=== PATIENT | male | born 1960 | race Caucasian/White ===

== ENCOUNTER 2022-03-30 06:57 | Inpatient (IN) ==
[2022-03-30] MEDS ORDERED: IOPAMIDOL 100 ML BOTTLE IV ONE (06:58)
[2022-03-30 07:10] LABS: POC Calcium, Ionized 1.18 (1.16-1.32); POC Creatinine 0.9 (0.6-1.2); POC Potassium 3.8 (3.3-5.1)
--- NOTE | 2022-03-30 07:13 | Emergency Department Note ---
HPI General Chief complaint: Stroke Symptoms Stated complaint: DIZZY, NUMBNESS, SLUR SPEACH Time Seen by Provider: 03/30/22 07:06 Source: patient and family Mode of arrival: ambulatory Limitations: no limitations History of Present Illness HPI Narrative: Narrative: This 61-year-old male states that he awoke approximately 4:00 am and felt "wobbly". He states he occasionally does feel this way so he did not think much about it. He went and sat in his easy chair after being in the bathroom and noticed slurred speech and facial drooping. He states this is approximately 5 AM. Patient states his neck was manipulated by a chiropractor yesterday. Patient's only medical history is hypertension chronic back pain and nicotine dependence. He denies any cancer diagnosis, any recent surgeries, and no head trauma within the last 3 months, (he did fall off a ladder in November), hes not on any antithrombotics or anticoagulants, and he has no known bleeding disorder. Related Data Home Medications Medication Instructions Recorded Confirmed beta-sitosterol 125 mg-vit D3 10 tab PO 03/21/21 03/22/22 hbw-xpyadccr-mwwlllxoy 250 mg tablet (Prostate Max Plus) cholecalciferol (vitamin D3) 50 50 mcg PO QDAY 03/21/21 03/22/22 mcg (2,000 unit) capsule fzvnamdi-xqkjabqk-gdo C 250 tab PO QDAY 03/27/21 03/22/22 mg-herbal no.124 11.66 mg chewable tablet (Airborne Gummy) multivitamin 1 tab PO QDAY 03/27/21 03/22/22 Previous Rx's Medication Instructions Recorded meclizine 12.5 mg tablet 12.5 mg PO TID PRN dizziness #20 01/30/22 tabs lisinopril 10 mg tablet 10 mg PO QDAY #90 tabs 03/22/22 Allergies Allergy/AdvReac Type Severity Reaction Status Date / Time No Known Drug Allergies Allergy Verified 03/22/22 15:21 Review of Systems ROS ROS Narrative: Narrative: All systems ED: reviewed and negative except as stated. COUNTS INCLUDE 234 BEDS AT THE [facility] Narrative Patient History Narrative: Narrative: Medical/Surgical/Family History All Active Problems (Updated 03/30/22 @ 09:18 by Nagi Bal MD) Acute CVA (cerebrovascular accident) (Acute) Acute exacerbation of chronic low back pain (Acute) Near syncope (Acute) Nicotine dependence (Chronic) Lumbar back pain (Chronic) Osteopenia (Chronic) Degenerative disc disease (Chronic) Osteoporosis (Chronic) High blood pressure (Chronic) Essential hypertension (Chronic) Obesity (Chronic) Family history of diabetes mellitus (Chronic) Medical History Degenerative disc disease Essential hypertension Family history of diabetes mellitus High blood pressure Lumbar back pain Nicotine dependence Obesity Osteopenia Osteoporosis Surgical History No pertinent past surgical history Family History Father Cancer Mother Diabetes mellitus Hypertension Grandfather Prostate cancer Social History Smoking Status: Never smoker and Smokeless tobacco Alcohol Intake Frequency: a few times a week Substance Use: does not use Exam Narrative Narrative: Narrative: General: Alert oriented x3 answers questions cogently. Has only a minor speech impediment at this time, disappearing quickly. Neuro: GCS equals 15. NIH stroke scale =2. Lungs: Clear to auscultation equal bilaterally without rales rhonchi or wheezes. CV: Regular rate and rhythm without murmurs clicks rubs or gallops. Neck: No carotid bruits appreciated. General Limitations: no limitations Course Vital Signs Vital signs: Vital Signs Temperature 97.8 F 03/30/22 06:58 Pulse Rate 82 03/30/22 06:58 Respiratory Rate 16 03/30/22 06:58 Blood Pressure 186/94 03/30/22 06:58 Pulse Oximetry (%) 100 03/30/22 06:58 Oxygen Delivery Method Room Air 03/30/22 06:58 Temperature 97.8 F 03/30/22 06:58 Pulse Rate 68 03/30/22 09:02 Respiratory Rate 16 03/30/22 09:02 Blood Pressure 146/84 03/30/22 07:40 Pulse Oximetry (%) 98 03/30/22 09:02 Oxygen Delivery Method Room Air 03/30/22 06:58 MDM MDM Narrative Medical decision making narrative: Narrative: EKG shows a normal sinus rhythm with no acute ischemic changes and no arrhythmias. CT without contrast was read by the neurologist as having no signs of an acute bleed or mass-effect, with whichthe radiologist agreed. CT angios of the head and neck were ordered and showed. The neurologist pointed out that the last known time of full health was when he went to bed (830), however he does state that he got additional symptoms besides his ataxia (which he has had before) at a proximately 5 AM. CTA of head and neck showed Mild plaque in the proximal left internal carotid artery. No stenosis or evidence for ulceration. 2. Otherwise negative CTA of the upper chest, neck, brain. No sign of dissection of carotid following neck manipulation. Discussed with Dr. Bal neurologist to reviewed the CTs and felt the patient was having a ischemic stroke and should be followed on aspirin Plavix and admitted for the rest of the CVA work-up. Sepsis Sepsis Identified: No Lab Data 03/30/22 07:03 Labs: Lab Results 03/30/22 03/30/22 03/30/22 Range/Units 07:03 07:03 07:07 WBC 7.7 (4.5-11.0) K/mcL RBC 5.58 (4.63-6.08) M/mcL Hgb 16.0 (13.7-17.5) g/dL Hct 49.3 (40.1-51.0) % POC Hct 51.0 (41-55) MCV 88.4 (80.0-100.0) fL MCH 28.7 (26.0-34.0) pg MCHC 32.5 (31.0-36.0) g/dL RDW 14.8 H (11.5-14.5) % Plt Count 228 (140-440) K/mcL MPV 10.4 (8.8-12.5) fL Immature Gran % (Auto) 0.5 (0.0-0.5) % Neut % (Auto) 66.4 (38.0-78.0) % Lymph % (Auto) 23.1 (15.5-49.0) % [place] % (Auto) 8.2 (1.0-12.0) % Eos % (Auto) 1.3 (0.0-7.0) % Baso % (Auto) 0.5 (0.0-2.0) % Lymph # (Auto) 1.77 (1.50-4.80) K/mcL [place] # (Auto) 0.63 (0.10-0.90) K/mcL Eos # (Auto) 0.10 (0.00-0.70) K/mcL Baso # (Auto) 0.04 (0.00-0.30) K/mcL Immature Gran # 0.04 (0.00-0.05) K/mcl Absolute Neutrophils 5.08 (1.80-8.00) K/mcL POC PT (11.9-14.5) POC INR (0.8-1.2) APTT 29.5 (20.0-37.0) sec POC Sodium 138 (133-145) POC Potassium 3.8 (3.3-5.1) POC Chloride 100 (96-108) POC Total CO2 29.0 (22-30) POC BUN 13 (6-20) POC Creatinine 0.9 (0.6-1.2) POC Glucose 153 H (70-105) POC WB Ioniz Calcium 1.18 (1.16-1.32) Total Bilirubin (0.1-1.0) mg/dL Direct Bilirubin (0-0.3) mg/dL AST (<40) U/L ALT (<40) U/L Alkaline Phosphatase (39-117) U/L Total Protein (5.9-8.4) gm/dL Albumin (3.2-5.2) gm/dL Globulin (2.2-3.7) gm/dL Urine Color Urine Appearance (Clear) Urine pH (5.0-9.0) Ur Specific [place] (1.000-1.035) Urine Protein (Negative) mg/dL Urine Glucose (UA) (Negative) mg/dL Urine Ketones (Negative) mg/dL Urine Occult Blood (Negative) nancy/mcL Urine Nitrate (Negative) Urine Bilirubin (Negative) mg/dL Urine Urobilinogen mg/dL Ur Leukocyte Esterase (Negative) /uL Ur Culture Indicated? POC Troponin I (0.00-0.08) 03/30/22 03/30/22 03/30/22 Range/Units 07:08 07:31 07:32 WBC (4.5-11.0) K/mcL RBC (4.63-6.08) M/mcL Hgb (13.7-17.5) g/dL Hct (40.1-51.0) % POC Hct (41-55) MCV (80.0-100.0) fL MCH (26.0-34.0) pg MCHC (31.0-36.0) g/dL RDW (11.5-14.5) % Plt Count (140-440) K/mcL MPV (8.8-12.5) fL Immature Gran % (Auto) (0.0-0.5) % Neut % (Auto) (38.0-78.0) % Lymph % (Auto) (15.5-49.0) % [place] % (Auto) (1.0-12.0) % Eos % (Auto) (0.0-7.0) % Baso % (Auto) (0.0-2.0) % Lymph # (Auto) (1.50-4.80) K/mcL [place] # (Auto) (0.10-0.90) K/mcL Eos # (Auto) (0.00-0.70) K/mcL Baso # (Auto) (0.00-0.30) K/mcL Immature Gran # (0.00-0.05) K/mcl Absolute Neutrophils (1.80-8.00) K/mcL POC PT 13.4 (11.9-14.5) POC INR 1.1 (0.8-1.2) APTT (20.0-37.0) sec POC Sodium (133-145) POC Potassium (3.3-5.1) POC Chloride (96-108) POC Total CO2 (22-30) POC BUN (6-20) POC Creatinine (0.6-1.2) POC Glucose (70-105) POC WB Ioniz Calcium (1.16-1.32) Total Bilirubin 0.5 (0.1-1.0) mg/dL Direct Bilirubin < 0.2 (0-0.3) mg/dL AST 21 (<40) U/L ALT 20 (<40) U/L Alkaline Phosphatase 69 (39-117) U/L Total Protein 8.0 (5.9-8.4) gm/dL Albumin 4.5 (3.2-5.2) gm/dL Globulin 3.5 (2.2-3.7) gm/dL Urine Color Urine Appearance (Clear) Urine pH (5.0-9.0) Ur Specific [place] (1.000-1.035) Urine Protein (Negative) mg/dL Urine Glucose (UA) (Negative) mg/dL Urine Ketones (Negative) mg/dL Urine Occult Blood (Negative) nancy/mcL Urine Nitrate (Negative) Urine Bilirubin (Negative) mg/dL Urine Urobilinogen mg/dL Ur Leukocyte Esterase (Negative) /uL Ur Culture Indicated? POC Troponin I < 0.02 (0.00-0.08) 03/30/22 Range/Units 08:01 WBC (4.5-11.0) K/mcL RBC (4.63-6.08) M/mcL Hgb (13.7-17.5) g/dL Hct (40.1-51.0) % POC Hct (41-55) MCV (80.0-100.0) fL MCH (26.0-34.0) pg MCHC (31.0-36.0) g/dL RDW (11.5-14.5) % Plt Count (140-440) K/mcL MPV (8.8-12.5) fL Immature Gran % (Auto) (0.0-0.5) % Neut % (Auto) (38.0-78.0) % Lymph % (Auto) (15.5-49.0) % [place] % (Auto) (1.0-12.0) % Eos % (Auto) (0.0-7.0) % Baso % (Auto) (0.0-2.0) % Lymph # (Auto) (1.50-4.80) K/mcL [place] # (Auto) (0.10-0.90) K/mcL Eos # (Auto) (0.00-0.70) K/mcL Baso # (Auto) (0.00-0.30) K/mcL Immature Gran # (0.00-0.05) K/mcl Absolute Neutrophils (1.80-8.00) K/mcL POC PT (11.9-14.5) POC INR (0.8-1.2) APTT (20.0-37.0) sec POC Sodium (133-145) POC Potassium (3.3-5.1) POC Chloride (96-108) POC Total CO2 (22-30) POC BUN (6-20) POC Creatinine (0.6-1.2) POC Glucose (70-105) POC WB Ioniz Calcium (1.16-1.32) Total Bilirubin (0.1-1.0) mg/dL Direct Bilirubin (0-0.3) mg/dL AST (<40) U/L ALT (<40) U/L Alkaline Phosphatase (39-117) U/L Total Protein (5.9-8.4) gm/dL Albumin (3.2-5.2) gm/dL Globulin (2.2-3.7) gm/dL Urine Color Lt. yellow Urine Appearance Clear (Clear) Urine pH 6.5 (5.0-9.0) Ur Specific [place] 1.020 (1.000-1.035) Urine Protein Negative (Negative) mg/dL Urine Glucose (UA) Negative (Negative) mg/dL Urine Ketones Negative (Negative) mg/dL Urine Occult Blood Negative (Negative) nancy/mcL Urine Nitrate Negative (Negative) Urine Bilirubin Negative (Negative) mg/dL Urine Urobilinogen Normal mg/dL Ur Leukocyte Esterase Negative (Negative) /uL Ur Culture Indicated? No POC Troponin I (0.00-0.08) Discharge Plan Patient/Caregiver Discharge Instructions Pt seen by ART STUDIO TEACHER/PA only: No Clinical Impression: Acute CVA (cerebrovascular accident) Patient Disposition: Xfer As Inpt ([facility]) Follow up with: Juan Treviño PA-C [Primary Care Provider] - Prescriptions: No Action Prostate Max Plus 125 mg-10 mcg- 250 mg tablet PO cholecalciferol (vitamin D3) 50 mcg (2,000 unit) capsule 50 mcg PO QDAY lisinopril 10 mg tablet 10 mg PO QDAY Qty: 90 3RF Airborne Gummy 250-11.66 mg tablet,chewable PO QDAY multivitamin Tablet 1 tab PO QDAY meclizine 12.5 mg tablet 12.5 mg PO TID PRN (Reason: dizziness) Qty: 20 0RF
--- NOTE | 2022-03-30 07:27 | Cat Scan Report ---
INDICATION: Neuro Deficit/acute stroke COMPARISON: None. TECHNIQUE: Axial noncontrast-enhanced images through the brain. Sagittally and coronally reformatted images. FINDINGS: Cerebral hemispheres:Negative. No intra-axial abnormality. No intra-axial hematoma. No localized mass effect.Brain volume is within normal limits for age. Periventricular white matter is negative without significant attenuation abnormality. Brainstem and cerebellum:No intra-axial abnormality Extra-axial:No acute hemorrhage. No subdural or epidural hematoma. No subarachnoid hemorrhage. Basilar cisterns are normal Calvarial:No calvarial fracture. No lytic lesion Temporal bones are negative. No destructive lesions Soft tissue, orbits, sinuses:Orbits and visualized facial soft tissues and paranasal sinuses are negative IMPRESSION: Negative noncontrast enhanced brain CT scan The exam was performed using radiation dose optimization techniques including, but not limited to, automated exposure control, adjustment of the mA and/or kV according to patient size and use of iterative reconstruction technique. Interpreted and Authenticated by: Andres Ernandez 03/30/22
[2022-03-30 07:34] LABS: POC INR 1.1 (0.8-1.2); POC Pro Time 13.4 (11.9-14.5)
[2022-03-30 08:21] LABS: Basophils # (Auto) 0.04 K/mcL (0.00-0.30); Basophils % (Auto) 0.5 % (0.0-2.0); Eosinophils % (Auto) 1.3 % (0.0-7.0); Hematocrit 49.3 % (40.1-51.0); Lymphocytes # (Auto) 1.77 K/mcL (1.50-4.80); Lymphocytes % (Auto) 23.1 % (15.5-49.0); Mean Cell Volume 88.4 fL (80.0-100.0); Mean Corpuscular HGB Conc 32.5 g/dL (31.0-36.0); Mean Platelet Volume 10.4 fL (8.8-12.5); Monocytes # (Auto) 0.63 K/mcL (0.10-0.90); Monocytes % (Auto) 8.2 % (1.0-12.0); Neutrophils % (Auto) 66.4 % (38.0-78.0); Platelet Count 228 K/mcL (140-440); RBC 5.58 M/mcL (4.63-6.08); Red Cell Distribution Width 14.8 % (11.5-14.5); WBC 7.7 K/mcL (4.5-11.0)
[2022-03-30 08:40] LABS: Appearance,Urine CLEAR (Clear); Bilirubin,Urine NEGATIVE (Negative); Color,Urine LT. YELLOW; Culture Indicated,Urine No; Glucose,Urine (UA) NEGATIVE (Negative); Ketones,Urine NEGATIVE (Negative); Leukocyte Esterase,Urine NEGATIVE /uL (Negative); Nitrate,Urine NEGATIVE (Negative); PH,Urine 6.5 (5.0-9.0); Protein,Urine NEGATIVE (Negative); Urine Blood NEGATIVE ery/mcL (Negative); Urobilinogen,Urine Normal
--- NOTE | 2022-03-30 08:53 | Cat Scan Report ---
INDICATION: cva sxs COMPARISON: Noncontrast enhanced brain CT scan dated 03/30/2022 TECHNIQUE: Axial images were obtained through the upper chest, neck, and head during arterial phase. MIP and CPR reformatted images. 90ml Isovue 370 injected intravenously. FINDINGS: AORTIC ARCH: Minimal calcified atherosclerotic plaque. Origins of the left subclavian artery, left vertebral artery, left common carotid artery, innominate artery, right common carotid artery, right subclavian artery, right vertebral artery are negative. No origin stenosis. CAROTID ARTERIES:Right: Right common carotid artery is negative. No stenosis or occlusion. No calcified or noncalcified plaque at the origin of the right internal carotid artery. No significant stenosis or evidence for ulceration. Right internal carotid artery is negative. No stenosis or occlusion. No fibromuscular dysplasia or dissection. Left: Left common carotid artery is negative. No stenosis or occlusion Minimal calcified and noncalcified plaque at the origin of left internal carotid artery. No significant stenosis. No evidence for ulceration. Left internal carotid artery is otherwise negative. There is no stenosis or occlusion. No dissection or evidence for fibromuscular dysplasia VERTEBRAL ARTERIES:Vertebral arteries are patent without stenosis or occlusion [place]:[Cavernous and supraclinoid internal carotid arteries are negative. No significant stenosis or occlusion. M1 segments of the middle cerebral arteries and A1 segments of the anterior cerebral arteries are negative. Intracranial vertebral arteries and basilar artery are negative. Posterior cerebral arteries and superior cerebellar arteries are negative] INTRACRANIAL CIRCULATION:No intracranial branch occlusion. No arteriovenous malformation or aneurysm No dural sinus occlusion UPPER CHEST:No pulmonary parenchymal mass or focal infiltrate. Superior mediastinum is negative NECK:No solid or cystic soft tissue mass. No pathologic lymphadenopathy. BRAIN:No acute intracranial hemorrhage. No focal attenuation abnormalities or pathologic contrast enhancement. IMPRESSION: 1. Mild plaque in the proximal left internal carotid artery. No stenosis or evidence for ulceration 2. Otherwise negative CTA of the upper chest, neck, brain The exam was performed using radiation dose optimization techniques including, but not limited to, automated exposure control, adjustment of the mA and/or kV according to patient size and use of iterative reconstruction technique. Interpreted and Authenticated by: Andres Ernandez 03/30/22
[2022-03-30 08:56] LABS: ALT/SGPT 20 U/L (<40); AST/SGOT 21 U/L (<40); Albumin 4.5 gm/dL (3.2-5.2); Alkaline Phosphatase 69 U/L (39-117); Bilirubin,Direct < 0.2 mg/dL (0-0.3); Bilirubin,Total 0.5 mg/dL (0.1-1.0); Globulin 3.5 gm/dL (2.2-3.7)
[2022-03-30] MEDS ORDERED: CLOPIDOGREL 300 MG TABLET PO ONE (09:12)
[2022-03-30] MEDS ORDERED: ASPIRIN 325 MG ENTERIC COATED TABLET PO ONE (09:14)
[2022-03-30] MEDS ORDERED: ASPIRIN 81 MG TAB.CHEW CHEWED ONE ×2 (09:41→09:44)
--- NOTE | 2022-03-30 10:01 | Internal Med History&Physical ---
HPI History of Present Illness Patient information: Note initiated : 03/30/22 at 10:00 am Service Date, if different from initiated Date: [] Patient: Efren Dhillon a 61 y/o M admitted on for DIZZY, NUMBNESS, SLUR SPEACH. Chief Complaint: [] History of present illness: Mr. Dhillon is a 61 year old M Presents to the ED with dizziness and lightheadedness and ataxia, which she has on occasion but much worse. More notably says his right facial droop and slurring of speech is new. Sounds like per his his speech seemed garbled at 1 point. Last seen normal last night. His symptoms have Remaining for hours. They have had some improvement in his facial droop and slurring since this morning although still present to a degree. He does admit to some right hand tingling which is since resolved. No focal weakness in his arms or legs. Patient has headache and neck pain has had that since he fell onto hunting few months ago. Saw chiropractor yesterday which she has been seen for the neck pain. And had adjustment. CTA head and neck in the ED showed no acute stroke or significant stenosis. Blood pressure elevated on admission. Patient takes lisinopril daily and has been taking it as prescribed. Case discussed with stroke neurologist who recommended dual antiplatelets and finish work-up. No recent illnesses. EKG normal sinus rhythm Review of Systems: Pertinent positives as above. Denies fever/chills/nausea/vomiting/chest or ab dominal pain/cough/dyspnea/diarrhea. Remaining 10 point review of system reviewed negative PFSH PFSH All Active Problems (Updated 03/30/22 @ 09:18 by Nagi Bal MD) Acute CVA (cerebrovascular accident) (Acute) Acute exacerbation of chronic low back pain (Acute) Near syncope (Acute) Nicotine dependence (Chronic) Lumbar back pain (Chronic) Osteopenia (Chronic) Degenerative disc disease (Chronic) Osteoporosis (Chronic) High blood pressure (Chronic) Essential hypertension (Chronic) Obesity (Chronic) Family history of diabetes mellitus (Chronic) Medical History Degenerative disc disease Essential hypertension Family history of diabetes mellitus High blood pressure Lumbar back pain Nicotine dependence Obesity Osteopenia Osteoporosis Surgical History No pertinent past surgical history Family History Father Cancer Mother Diabetes mellitus Hypertension Grandfather Prostate cancer Social History household members: spouse housing: house lives independently: Yes marital status: education level: high school service: No occupational status: 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 Now has a glass of wine MEDS/ALLERGIES Home Medications and Allergies Home Medications Medication Instructions Recorded Confirmed Type beta-sitosterol 125 mg-vit D3 10 1 tab PO 03/21/21 03/22/22 History acv-xjkzfvpw-ieguyetfb 250 mg tablet (Prostate Max Plus) cholecalciferol (vitamin D3) 50 50 mcg PO QDAY 03/21/21 03/30/22 History mcg (2,000 unit) capsule guwuyyzt-xnwvhmmg-iib C 250 1 tab PO QDAY 03/27/21 03/30/22 History mg-herbal no.124 11.66 mg chewable tablet (Airborne Gummy) multivitamin 1 tab PO QDAY 03/27/21 03/30/22 History meclizine 12.5 mg tablet 12.5 mg PO TID PRN dizziness #20 01/30/22 03/30/22 Rx tabs lisinopril 10 mg tablet 10 mg PO QDAY #90 tabs 03/22/22 03/30/22 Rx Allergies Allergy/AdvReac Type Severity Reaction Status Date / Time No Known Drug Allergies Allergy Verified 03/22/22 15:21 EXAM Constitutional Vitals: Temp Pulse Resp BP Pulse Ox O2 Del Method 97.8 F 68 16 146/84 98 Room Air 03/30/22 06:58 03/30/22 09:02 03/30/22 09:02 03/30/22 07:40 03/30/22 09:02 03/30/22 06:58 Exam: General: Alert, Awake, No acute Distress Eyes/N/T: EOMI, PERRL, Head/Neck: neck supple, normocephalic atraumatic CV: RRR, No murmurs, normal s1/s2 Pulm: Clear b/l, no wheezing/rhonchi/rales Abd: soft, nontender, +BS x4 Ext: no clubbing/cyanosis/edema Neuro: Alert, mild right facial droop, slurring of speech. Strength symmetrical bilateral upper and lower, sensations intact . No pronator drift. No aphasia. Skin: warm/dry DATA Data Completed and Pending Labs: Labs from last 24 hours 03/30/22 03/30/22 03/30/22 08:01 07:32 07:31 WBC RBC Hgb Hct POC Hct MCV MCH MCHC RDW Plt Count MPV Immature Gran % (Auto) Neut % (Auto) Lymph % (Auto) [place] % (Auto) Eos % (Auto) Baso % (Auto) Lymph # (Auto) [place] # (Auto) Eos # (Auto) Baso # (Auto) Immature Gran # Absolute Neutrophils POC PT 13.4 POC INR 1.1 APTT POC Sodium POC Potassium POC Chloride POC Total CO2 POC BUN POC Creatinine POC Glucose POC WB Ioniz Calcium Total Bilirubin 0.5 Direct Bilirubin < 0.2 AST 21 ALT 20 Alkaline Phosphatase 69 Total Protein 8.0 Albumin 4.5 Globulin 3.5 Urine Color Lt. yellow Urine Appearance Clear Urine pH 6.5 Ur Specific [place] 1.020 Urine Protein Negative Urine Glucose (UA) Negative Urine Ketones Negative Urine Occult Blood Negative Urine Nitrate Negative Urine Bilirubin Negative Urine Urobilinogen Normal Ur Leukocyte Esterase Negative Ur Culture Indicated? No POC Troponin I 03/30/22 03/30/22 03/30/22 07:08 07:07 07:03 WBC RBC Hgb Hct POC Hct 51.0 MCV MCH MCHC RDW Plt Count MPV Immature Gran % (Auto) Neut % (Auto) Lymph % (Auto) [place] % (Auto) Eos % (Auto) Baso % (Auto) Lymph # (Auto) [place] # (Auto) Eos # (Auto) Baso # (Auto) Immature Gran # Absolute Neutrophils POC PT POC INR APTT 29.5 POC Sodium 138 POC Potassium 3.8 POC Chloride 100 POC Total CO2 29.0 POC BUN 13 POC Creatinine 0.9 POC Glucose 153 H POC WB Ioniz Calcium 1.18 Total Bilirubin Direct Bilirubin AST ALT Alkaline Phosphatase Total Protein Albumin Globulin Urine Color Urine Appearance Urine pH Ur Specific [place] Urine Protein Urine Glucose (UA) Urine Ketones Urine Occult Blood Urine Nitrate Urine Bilirubin Urine Urobilinogen Ur Leukocyte Esterase Ur Culture Indicated? POC Troponin I < 0.02 03/30/22 07:03 WBC 7.7 RBC 5.58 Hgb 16.0 Hct 49.3 POC Hct MCV 88.4 MCH 28.7 MCHC 32.5 RDW 14.8 H Plt Count 228 MPV 10.4 Immature Gran % (Auto) 0.5 Neut % (Auto) 66.4 Lymph % (Auto) 23.1 [place] % (Auto) 8.2 Eos % (Auto) 1.3 Baso % (Auto) 0.5 Lymph # (Auto) 1.77 [place] # (Auto) 0.63 Eos # (Auto) 0.10 Baso # (Auto) 0.04 Immature Gran # 0.04 Absolute Neutrophils 5.08 POC PT POC INR APTT POC Sodium POC Potassium POC Chloride POC Total CO2 POC BUN POC Creatinine POC Glucose POC WB Ioniz Calcium Total Bilirubin Direct Bilirubin AST ALT Alkaline Phosphatase Total Protein Albumin Globulin Urine Color Urine Appearance Urine pH Ur Specific [place] Urine Protein Urine Glucose (UA) Urine Ketones Urine Occult Blood Urine Nitrate Urine Bilirubin Urine Urobilinogen Ur Leukocyte Esterase Ur Culture Indicated? POC Troponin I A/P Narrative A/P Narrative: A: *Strokelike symptoms (slurring/right facial droop/ataxia): *HTN: *Obesity: BMI 33 *Chewing tobacco use: P: -DAPT, statin -lipid panel -Permissive HTN 24-48hrs, hold home ACEI for now -echo pending -MRI pending -neuro -Home medication reconciliation -PT/OT/ST -ppx: Lovenox Time Spent With Patient Time: Total time spent is greater than 50% in coordination of care (as documented) at patient's floor/unit and/or counseling patient: Subsequent: Total time with patient: 50 - 65 Minutes QUALITY Stroke Symptom Onset Unknown: No
[2022-03-30] MEDS ORDERED: ACETAMINOPHEN 325 MG TABLET PO PRN (12:44)
[2022-03-30] MEDS ORDERED: POTASSIUM CHLORIDE 40 MEQ in DEXTROSE 5% IN WATER 500 ML IV PRN (12:44)
[2022-03-30] MEDS ORDERED: HYDROcodone/APAP 5/325MG TABLET PO PRN (12:44)
[2022-03-30] MEDS ORDERED: POTASSIUM CHLORIDE 20 MEQ TABLET PO PRN ×2 (12:44)
[2022-03-30] MEDS ORDERED: SENNOSIDES 1 TABLET PO PRN (12:44)
[2022-03-30] MEDS ORDERED: POLYETHYLENE GLYCOL 3350 17 GM PACKET PO PRN (12:44)
[2022-03-30] MEDS ORDERED: IPRATROPIUM/ALBUTEROL 3 ML AMPUL.NEB NEB PRN (12:44)
[2022-03-30] MEDS ORDERED: ONDANSETRON 4 MG/2 ML VIAL IV PRN (12:44)
[2022-03-30] MEDS ORDERED: MAGNESIUM SULFATE 2 GM/50 ML BAG IV PRN (12:44)
[2022-03-30] MEDS ORDERED: 0.9 % SODIUM CHLORIDE 1,000 ML IV SCH (12:45)
[2022-03-30] MEDS ORDERED: LABETALOL 5 MG/ML ML IV PRN (12:49)
[2022-03-30] MEDS: 0.9 % SODIUM CHLORIDE 10 ML SYRINGE IV SCH ×2 (13:13→22:27)
[2022-03-30 16:09] LABS: HDL Cholesterol 66 mg/dL (>40); LDL Cholesterol,Calculated 132 mg/dL (<100); Non-HDL Cholesterol 160 mg/dL (<130); Triglycerides 145 mg/dL (<150)
[2022-03-30] MEDS ORDERED: NICOTINE POLACRILEX 2 MG GUM CHEW/PARK PRN (16:16)
[2022-03-30] MEDS: NICOTINE 21 MG PATCH TOPICAL SCH (17:56)
--- NOTE | 2022-03-30 18:09 | Magnetic Resonance Report ---
INDICATION: right facial droop, slurring TECHNIQUE: Limited stroke protocol COMPARISON: CT scan and CTA dated 03/30/2022 FINDINGS: No restricted diffusion. No acute infarction. No focal intra-axial signal abnormality. Axial T2-weighted images are negative. Normal brain volume. No extra-axial, intracranial abnormality. IMPRESSION: Negative Limited evaluation. No acute infarction no focal abnormality Interpreted and Authenticated by: Andres Ernandez 03/30/22
[2022-03-30] MEDS: ATORVASTATIN 40 MG TABLET PO SCH (20:27)
[2022-03-30] MEDS ORDERED: MECLIZINE 25 MG TABLET PO PRN (20:58)
[2022-03-31] MEDS: 0.9 % SODIUM CHLORIDE 10 ML SYRINGE IV SCH ×4 (05:37→21:58)
[2022-03-31 07:38] LABS: ALT/SGPT 19 U/L (<40); AST/SGOT 16 U/L (<40); Albumin/Globulin Ratio 1.3 (1.0-2.3); Alkaline Phosphatase 57 U/L (39-117); Bilirubin,Direct < 0.2 mg/dL (0-0.3); Bilirubin,Total 0.5 mg/dL (0.1-1.0); Blood Urea Nitrogen 9 mg/dL (8-23); Calcium 9.3 mg/dL (8.6-10.4); Carbon Dioxide 26 mmol/L (22-30); Chloride 102 mmol/L (96-108); Globulin 3.2 gm/dL (2.2-3.7); Glomerular Filtration Rate 95; Glucose 111 mg/dL (70-105); Lactate Dehydrogenase 134 U/L (135-225); Phosphorous 3.1 mg/dL (2.5-4.5); Triglycerides 130 mg/dL (<150); Uric Acid 5.1 mg/dL (2.5-8.0)
[2022-03-31] MEDS: PANTOPRAZOLE 40 MG VIAL IV SCH (07:40)
--- NOTE | 2022-03-31 08:33 | Internal Med Progress Note ---
SUBJECTIVE Subjective Patient information: Note initiated : 03/31/22 at 8:27 am Service Date, if different from initiated Date: [] Patient: Efren Dhillon a 61 y/o M admitted on 03/30/22 for DIZZY, NUMBNESS, SLUR SPEACH. Chief Complaint: [] Interval history: History of present illness: Mr. Dhillon is a 61 year old M Presents to the ED with dizziness and lightheadedness and ataxia, which she has on occasion but much worse. More notably says his right facial droop and slurring of speech is new. Sounds like per his his speech seemed garbled at 1 point. Last seen normal last night. His symptoms have Remaining for hours. They have had some improvement in his facial droop and slurring since this morning although still present to a degree. He does admit to some right hand tingling which is since resolved. No focal weakness in his arms or legs. Patient has headache and neck pain has had that since he fell onto hunting few months ago. Saw chiropractor yesterday which she has been seen for the neck pain. And had adjustment. CTA head and neck in the ED showed no acute stroke or significant stenosis. Blood pressure elevated on admission. Patient takes lisinopril daily and has been taking it as prescribed. Case discussed with stroke neurologist who recommended dual antiplatelets and finish work-up. No recent illnesses. EKG normal sinus rhythm 2/4 Patient complains of numbness on his face as well as right arm. MRI cervical spine pending. Blood pressures come down on its own. Does complain of pyrosis. Review of Systems: denies headache/fever/chills/nausea/vomiting/chest or abdominal pain/cough/dyspnea/diarrhea. Otherwise see above. Constitutional Vitals: Vital Signs Temp Pulse Resp BP Pulse Ox O2 Del Method O2 Flow Rate 97 F 84 19 126/78 98 Room Air 0 03/31/22 08:01 03/31/22 06:44 03/31/22 08:01 03/31/22 08:01 03/31/22 08:01 03/31/22 04:01 03/31/22 00:01 Period Temp Pulse Resp BP Sys/Lewis Pulse Ox O2 Del Method O2 Flow Rate Last 24 Hr 97 F-98.0 F 64-88 11-21 98-169/62-107 93-100 Room Air-Room Air 0-0 Intake and Output 03/30/22 03/31/22 03/31/22 19:59 03:59 11:59 Intake Total 1000 Output Total 150 250 300 Balance -150 -250 700 Weight 93.485 kg Intake & Output: Intake & Output 03/30/22 03/31/22 03/31/22 19:59 03:59 11:59 Intake Total 1000 Output Total 150 250 300 Balance -150 -250 700 Weight 93.485 kg Intake: IV 1000 Sodium Chloride 0.9% 1,000 ml @ 1000 125 mls/hr IV .Q8H [facility] Rx#: [id number] Output: Void Amount 150 250 300 Other: Urine Appearance Clear Clear Clear Urine Color Light Cheri Yellow Yellow Exam: General: Alert, Awake, No acute Distress Eyes/N/T: EOMI, , Head/Neck: neck supple, CV: RRR, No murmurs, Pulm: Clear b/l, no wheezing/rhonchi/rales Abd: soft, nontender, +BS x4 Ext: no clubbing/cyanosis/edema Neuro: Alert, subtle right facial droop, slurring of speech minimial. Strength symmetrical bilateral upper and lower, sensations intact b/l upper/lower. No pronator drift. No aphasia. Skin: warm/dry OBJ DATA Labs 03/30/22 07:03 03/31/22 05:30 Labs: Abnormal Lab Results 03/31/22 03/30/22 03/30/22 05:30 07:30 07:07 RDW Glucose 111 H POC Glucose 153 H Lactate Dehydrogenase 134 L Cholesterol 226 H LDL Cholesterol, Calc 132 H Non-HDL Cholesterol 160 H 03/30/22 07:03 RDW 14.8 H Glucose POC Glucose Lactate Dehydrogenase Cholesterol LDL Cholesterol, Calc Non-HDL Cholesterol Meds: Medications Acetaminophen (Acetaminophen 325 Mg Tablet) 650 mg PO Q6HP PRN; Protocol PRN Reason: Per Pain Protocol/Fever > 101 Hydrocodone Bitart/Acetaminophen (Hydrocodone/Apap 5/325mg Tablet) 1 tab PO Q4HP PRN PRN Reason: PAIN LEVEL 3-6 Albuterol/Ipratropium (Ipratropium/Albuterol 3 Ml Ampul.Neb) 3 ml NEB Q4HP PRN PRN Reason: Shortness Of Breath Aspirin (Aspirin 81 Mg Tab.Chew) 81 mg PO DAILY [facility] Atorvastatin Calcium (Atorvastatin 40 Mg Tablet) 80 mg PO HS [facility] Last Admin: 03/30/22 20:27 Dose: 80 mg Clopidogrel Bisulfate (Clopidogrel 75 Mg Tablet) 75 mg PO DAILY [facility] Enoxaparin Sodium (Enoxaparin 40 Mg/0.4 Ml Syringe) 40 mg SQ DAILY [facility] Potassium Chloride 40 meq/ (Dextrose) 520 mls @ 130 mls/hr IV UD PRN PRN Reason: Potassium < 3 Magnesium Sulfate (Magnesium Sulfate) 2 gm in 50 mls @ 50 mls/hr IV UD PRN PRN Reason: Magnesium </= 1.6 Labetalol HCl (Labetalol 5 Mg/Ml Ml) 0 mg IV Q2HP PRN PRN Reason: Hypertension Meclizine HCl (Meclizine 25 Mg Tablet) 12.5 mg PO TIDP PRN PRN Reason: Vertigo Last Admin: 03/31/22 05:41 Dose: 12.5 mg Nicotine (Nicotine 21 Mg Patch) 21 mg TOPICAL DAILY@1000 [facility] Last Admin: 03/30/22 17:56 Dose: 21 mg Nicotine Polacrilex (Nicotine Polacrilex 2 Mg Gum) 2 mg CHEW/PARK Q4HP PRN PRN Reason: smoking Last Admin: 03/30/22 16:32 Dose: 2 mg Ondansetron HCl (Ondansetron 4 Mg/2 Ml Vial) 4 mg IV Q4HP PRN PRN Reason: Nausea And Vomiting Last Admin: 03/30/22 19:39 Dose: 4 mg Pantoprazole Sodium (Pantoprazole 40 Mg Vial) 40 mg IV QAMAC [facility] Last Admin: 03/31/22 07:40 Dose: 40 mg Polyethylene Glycol (Polyethylene Glycol 3350 17 Gm Packet) 17 gm PO DAILYP PRN PRN Reason: Constipation Potassium Chloride (Potassium Chloride 20 Meq Tablet) 40 meq PO UD PRN PRN Reason: Potssium is 3-3.5 Potassium Chloride (Potassium Chloride 20 Meq Tablet) 40 meq PO UD PRN PRN Reason: Potassium < 3 Senna (Sennosides 1 Tablet) 2 tab PO DAILYP PRN PRN Reason: Constipation Sodium Chloride (0.9 % Sodium Chloride 10 Ml Syringe) 10 ml IV Q8 [facility] Last Admin: 03/31/22 07:41 Dose: 10 ml A/P Narrative A/P Narrative: A: *Strokelike symptoms (slurring/right facial droop/ataxia/right hand numb): -echo no thrombus or shunts or significant findings -MRI a limited study with no noted ischemia noted per limited study *HTN: *HLD: *Obesity: BMI 33 *Chewing tobacco use: P: -DAPT, statin -lipid panel -Permissive HTN 24-48hrs, hold home ACEI for now, restart in AM -neuro checks -MR cervial spine -PT/OT/ST -ppx: Lovenox Time Spent With Patient Time: Total time spent is greater than 50% in coordination of care (as documented) at patient's floor/unit and/or counseling patient: Subsequent: Total time with patient: 50 - 65 Minutes QUALITY Stroke Onset of Symptoms Date: 03/30/22 Onset of Symptoms Time: 04:00 Symptom Onset Unknown: No VTE Deep Vein Thrombosis/Pulmonary Embolism Present on Admission: No
[2022-03-31] MEDS ORDERED: ASPIRIN 81 MG TAB.CHEW CHEWED SCH (09:00)
[2022-03-31] MEDS: NICOTINE 21 MG PATCH TOPICAL SCH (09:50)
[2022-03-31] MEDS: ENOXAPARIN 40 MG/0.4 ML SYRINGE SQ SCH (09:50)
[2022-03-31] MEDS: ASPIRIN 81 MG TAB.CHEW PO SCH (10:46)
[2022-03-31] MEDS: CLOPIDOGREL 75 MG TABLET PO SCH (10:46)
[2022-03-31] MEDS ORDERED: LORazepam 2 MG/ML VIAL IV ONE (11:05)
[2022-03-31] MEDS: CALCIUM CARBONATE 500 MG TAB.CHEW CHEWED PRN (11:18)
[2022-03-31] MEDS: DEXTROSE 5%-1/2NS W/10MEQ KCL 1,000 ML IV SCH ×2 (12:09→22:26)
--- NOTE | 2022-03-31 12:12 | Magnetic Resonance Report ---
INDICATION: right hand numb, recent chiropractic manipulation, COMPARISON: Previous CTA of the neck and head dated 03/30/2022 TECHNIQUE: Sagittal T2 FRFSE, T1 FLAIR, STIR, T2 FRFSE. Axial 2D MERGE, T2 FRFSE. FINDINGS: Skull base:No significant stenosis at the foramen magnum. No Chiari I malformation. There is signal abnormality within the inferior left cerebellar hemisphere. This measures up partially 7 mm. Appearance is consistent with nonacute cerebellar infarction. C2-3:Negative. No significant degenerative disc disease. No soft disc herniation. No spinal canal stenosis C3-4:Negative. No significant degenerative disc disease. No soft disc herniation. No spinal canal stenosis C4-5:Negative. No significant degenerative disc disease. No soft disc herniation. No spinal canal stenosis C5-6:Mild degenerative disc disease. Broad-based disc osteophyte complex. No focal soft disc herniation. No spinal canal or foraminal stenosis C6-7:Severe degenerative disc disease. There is marked disc narrowing. Broad-based disc osteophyte complex. There is left C7 foraminal stenosis. No spinal canal stenosis C7-T1:Mild degenerative disc disease. Broad-based disc osteophyte complex. No spinal canal or foraminal stenosis Cervical vertebral bodies and facets:No bone marrow edema. No pathologic marrow replacement. No evidence for metastatic disease. Normal cervical lordosis. Spinal cord:No intramedullary signal abnormality. No spinal cord enlargement or atrophy. Cervical medullary junction is normal No epidural abnormality. No epidural hematoma or abscess. Paraspinal soft tissues:No paraspinal soft tissue mass. No prevertebral soft tissue swelling Right vertebral artery is a small caliber vessel is compared with the left. Both vertebral arteries are patent throughout their length. Common carotid arteries and internal carotid arteries are not optimally evaluated but there is no evidence for intraluminal thrombus IMPRESSION: 1. Degenerative disc disease as above. Left C7 foraminal stenosis 2. 7 mm nonacute lacunar infarction in the inferior left cerebellar hemisphere 3. Normal flow void within cervical vertebral arteries. No definite abnormality of the common carotid or internal carotid arteries 4. Normal cervical spinal cord. No intramedullary signal abnormality Interpreted and Authenticated by: Andres Ernandez 03/31/22
[2022-03-31] MEDS: ATORVASTATIN 40 MG TABLET PO SCH (21:58)
[2022-04-01] MEDS: 0.9 % SODIUM CHLORIDE 10 ML SYRINGE IV SCH ×3 (05:55→21:43)
[2022-04-01] MEDS: PANTOPRAZOLE 40 MG VIAL IV SCH (07:18)
[2022-04-01] MEDS: CALCIUM CARBONATE 500 MG TAB.CHEW CHEWED PRN ×2 (07:28→21:41)
--- NOTE | 2022-04-01 07:59 | Internal Med Progress Note ---
SUBJECTIVE Subjective Patient information: Note initiated : 04/01/22 at 7:53 am Service Date, if different from initiated Date: [] Patient: Efren Dhillon a 61 y/o M admitted on 03/30/22 for DIZZY, NUMBNESS, SLUR SPEACH. Chief Complaint: [] Interval history: History of present illness: Mr. Dhillon is a 61 year old M Presents to the ED with dizziness and lightheadedness and ataxia, which she has on occasion but much worse. More notably says his right facial droop and slurring of speech is new. Sounds like per his his speech seemed garbled at 1 point. Last seen normal last night. His symptoms have Remaining for hours. They have had some improvement in his facial droop and slurring since this morning although still present to a degree. He does admit to some right hand tingling which is since resolved. No focal weakness in his arms or legs. Patient has headache and neck pain has had that since he fell onto hunting few months ago. Saw chiropractor yesterday which she has been seen for the neck pain. And had adjustment. CTA head and neck in the ED showed no acute stroke or significant stenosis. Blood pressure elevated on admission. Patient takes lisinopril daily and has been taking it as prescribed. Case discussed with stroke neurologist who recommended dual antiplatelets and finish work-up. No recent illnesses. EKG normal sinus rhythm 2/4 Patient complains of numbness on his face as well as right arm. MRI cervical spine pending. Blood pressures come down on its own. Does complain of pyrosis. 2/5 Patient had medications applesauce and that seemed to go well. Then had some medications with pudding and had coughing with that. We did ambulate in the hallway and did feel wobbly but he says better than yesterday. CT C-spine showed severe arthritis and C6-C7 with disc narrowing and 7 mm lacunar infarct in the left cerebellar hemisphere reported as nonacute at the time of the image taken. Speech therapy to reevaluate patient today and awaiting physical therapy eval. Review of Systems: denies headache/fever/chills/nausea/vomiting/chest or abdominal pain/cough/dyspnea/diarrhea. Otherwise see above. Constitutional Vitals: Vital Signs Temp Pulse Resp BP Pulse Ox O2 Del Method O2 Flow Rate 97.8 F 64 18 134/79 99 Room Air 0 04/01/22 04:01 04/01/22 06:01 04/01/22 06:01 04/01/22 06:01 04/01/22 06:01 04/01/22 04:01 03/31/22 19:45 Period Temp Pulse Resp BP Sys/Lewis Pulse Ox O2 Del Method O2 Flow Rate Last 24 Hr 97 F-98.0 F 59-84 8-29 98-139/53-79 96-100 Room Air-Room Air 0 Intake and Output 03/31/22 04/01/22 04/01/22 19:59 03:59 11:59 Intake Total 60 864 Output Total 175 275 Balance -115 589 Weight 97.069 kg Intake & Output: Intake & Output 03/31/22 04/01/22 04/01/22 19:59 03:59 11:59 Intake Total 60 864 Output Total 175 275 Balance -115 589 Weight 97.069 kg Intake: IV 864 Dextrose 5%-1/2Ns W/10Meq KCl 1 864 ,000 ml @ 84 mls/hr IV .[id number] [facility] Rx#:[id number] Oral 60 Output: Void Amount 175 275 Other: Urine Appearance Clear Clear Urine Color Dark Yellow Bright Yellow Urine Odor Normal Normal # Bowel Movements 0 Exam: General: Alert, Awake, No acute Distress Eyes/N/T: EOMI, , Head/Neck: neck supple, CV: RRR, No murmurs, Pulm: Clear b/l, no wheezing/rhonchi/rales Abd: soft, nontender, +BS x4 Ext: no clubbing/cyanosis/edema Neuro: Alert, slurring of speech improving.no focal weakness Skin: warm/dry OBJ DATA Labs 03/30/22 07:03 03/31/22 05:30 Labs: Abnormal Lab Results 03/31/22 03/30/22 03/30/22 05:30 07:30 07:07 RDW Glucose 111 H POC Glucose 153 H Lactate Dehydrogenase 134 L Cholesterol 226 H LDL Cholesterol, Calc 132 H Non-HDL Cholesterol 160 H 03/30/22 07:03 RDW 14.8 H Glucose POC Glucose Lactate Dehydrogenase Cholesterol LDL Cholesterol, Calc Non-HDL Cholesterol Meds: Medications Acetaminophen (Acetaminophen 325 Mg Tablet) 650 mg PO Q6HP PRN; Protocol PRN Reason: Per Pain Protocol/Fever > 101 Hydrocodone Bitart/Acetaminophen (Hydrocodone/Apap 5/325mg Tablet) 1 tab PO Q4HP PRN PRN Reason: PAIN LEVEL 3-6 Albuterol/Ipratropium (Ipratropium/Albuterol 3 Ml Ampul.Neb) 3 ml NEB Q4HP PRN PRN Reason: Shortness Of Breath Aspirin (Aspirin 81 Mg Tab.Chew) 81 mg PO DAILY [facility] Last Admin: 03/31/22 10:46 Dose: 81 mg Atorvastatin Calcium (Atorvastatin 40 Mg Tablet) 80 mg PO HS [facility] Last Admin: 03/31/22 21:58 Dose: 80 mg Calcium Carbonate/Glycine (Calcium Carbonate 500 Mg Tab.Chew) 1,000 mg CHEWED Q4HP PRN PRN Reason: Dyspepsia Last Admin: 04/01/22 07:28 Dose: 1,000 mg Clopidogrel Bisulfate (Clopidogrel 75 Mg Tablet) 75 mg PO DAILY [facility] Last Admin: 03/31/22 10:46 Dose: 75 mg Enoxaparin Sodium (Enoxaparin 40 Mg/0.4 Ml Syringe) 40 mg SQ DAILY [facility] Last Admin: 03/31/22 09:50 Dose: 40 mg Potassium Chloride 40 meq/ (Dextrose) 520 mls @ 130 mls/hr IV UD PRN PRN Reason: Potassium < 3 Magnesium Sulfate (Magnesium Sulfate) 2 gm in 50 mls @ 50 mls/hr IV UD PRN PRN Reason: Magnesium </= 1.6 Potassium Chloride/Dextrose/Sod Cl (Dextrose 5%-1/2ns W/10meq Kcl) 1,000 mls @ 84 mls/hr IV .[id number] [facility] Last Admin: 03/31/22 22:26 Dose: 84 mls/hr Labetalol HCl (Labetalol 5 Mg/Ml Ml) 0 mg IV Q2HP PRN PRN Reason: Hypertension Meclizine HCl (Meclizine 25 Mg Tablet) 12.5 mg PO TIDP PRN PRN Reason: Vertigo Last Admin: 03/31/22 05:41 Dose: 12.5 mg Nicotine (Nicotine 21 Mg Patch) 21 mg TOPICAL DAILY@1000 [facility] Last Admin: 03/31/22 09:50 Dose: 21 mg Nicotine Polacrilex (Nicotine Polacrilex 2 Mg Gum) 2 mg CHEW/PARK Q4HP PRN PRN Reason: smoking Last Admin: 03/30/22 16:32 Dose: 2 mg Ondansetron HCl (Ondansetron 4 Mg/2 Ml Vial) 4 mg IV Q4HP PRN PRN Reason: Nausea And Vomiting Last Admin: 03/30/22 19:39 Dose: 4 mg Pantoprazole Sodium (Pantoprazole 40 Mg Vial) 40 mg IV QAMAC [facility] Last Admin: 04/01/22 07:18 Dose: 40 mg Polyethylene Glycol (Polyethylene Glycol 3350 17 Gm Packet) 17 gm PO DAILYP PRN PRN Reason: Constipation Potassium Chloride (Potassium Chloride 20 Meq Tablet) 40 meq PO UD PRN PRN Reason: Potssium is 3-3.5 Potassium Chloride (Potassium Chloride 20 Meq Tablet) 40 meq PO UD PRN PRN Reason: Potassium < 3 Senna (Sennosides 1 Tablet) 2 tab PO DAILYP PRN PRN Reason: Constipation Sodium Chloride (0.9 % Sodium Chloride 10 Ml Syringe) 10 ml IV Q8 [facility] Last Admin: 04/01/22 05:55 Dose: 10 ml A/P Narrative A/P Narrative: A: *Stroke, cerebellar(Ataxia/slurring/right facial droop): -likely left cerebellar infarct -echo no thrombus or shunts or significant findings -MRI brain a limited study with no noted ischemia noted per limited study -mri c spine with left cerebellar infarct *C-spine arthritis: marked disc narrowing c6-7 *Oropharyngeal Dysphagia, mod-sev: *HTN: *HLD: *Obesity: BMI 33 *Chewing tobacco use: P: -DAPT, statin -Permissive HTN 24-48hrs, restart home ACEI if bp increases -neuro checks -nicotine patch -IVF while npo -ST following, currently npo -PT/OT -ppx: Lovenox Time Spent With Patient Time: Total time spent is greater than 50% in coordination of care (as documented) at patient's floor/unit and/or counseling patient: Subsequent: Total time with patient: 50 - 65 Minutes QUALITY Stroke Onset of Symptoms Date: 03/30/22 Onset of Symptoms Time: 04:00 Symptom Onset Unknown: No VTE Deep Vein Thrombosis/Pulmonary Embolism Present on Admission: No
[2022-04-01] MEDS: NICOTINE 21 MG PATCH TOPICAL SCH (09:09)
[2022-04-01] MEDS: ENOXAPARIN 40 MG/0.4 ML SYRINGE SQ SCH (09:09)
[2022-04-01] MEDS: ASPIRIN 81 MG TAB.CHEW PO SCH (09:09)
[2022-04-01] MEDS: CLOPIDOGREL 75 MG TABLET PO SCH (09:09)
--- NOTE | 2022-04-01 11:06 | Discharge Summary ---
Discharge Provider Provider IMPORTANT FOLLOW-UP INFORMATION FOR PCP: Patient information: Note initiated : 04/01/22 at 11:05 am Service Date, if different from initiated Date: [] Patient: Efren Dhillon 61 y/o M admitted on 03/30/22 for DIZZY, NUMBNESS, SLUR SPEACH. Chief Complaint: [] Date of admission: 03/30/22 11:50 Primary care physician: Juan Treviño PA-C Consults: 03/30/22 Consult to Physician [CONS] Stat Comment: Consulting Provider: Amando Kamara Reason For Exam: Physician to Consult 03/30/22 07:03 Consult to Physician [CONS] Stat Comment: Consulting Provider: [facility] Reason For Exam: Physician to Consult COURSE Hospital Course Hospital course: History of present illness: Mr. Dhillon is a 61 year old M Presents to the ED with dizziness and lightheadedness and ataxia, which she has on occasion but much worse. More notably says his right facial droop and slurring of speech is new. Sounds like per his his speech seemed garbled at 1 point. Last seen normal last night. His symptoms have Remaining for hours. They have had some improvement in his facial droop and slurring since this morning although still present to a degree. He does admit to some right hand tingling which is since resolved. No focal weakness in his arms or legs. Patient has headache and neck pain has had that since he fell onto hunting few months ago. Saw chiropractor yesterday which she has been seen for the neck pain. And had adjustment. CTA head and neck in the ED showed no acute stroke or significant stenosis. Blood pressure elevated on admission. Patient takes lisinopril daily and has been taking it as prescribed. Case discussed with stroke neurologist who recommended dual antiplatelets and finish work-up. No recent illnesses. EKG normal sinus rhythm 2/4 Patient complains of numbness on his face as well as right arm. MRI cervical spine pending. Blood pressures come down on its own. Does complain of pyrosis. 2/5 Patient had medications applesauce and that seemed to go well. Then had some medications with pudding and had coughing with that. We did ambulate in the hallway and did feel wobbly but he says better than yesterday. CT C-spine showed severe arthritis and C6-C7 with disc narrowing and 7 mm lacunar infarct in the left cerebellar hemisphere reported as nonacute at the time of the image taken. Speech therapy to reevaluate patient today and awaiting physical therapy eval. 04/02 Patient says he is feeling improvement today. I did catch him up with his walker going to the bathroom back. Instruct importance of waiting for staff to help him. He does say that he is walking better and more stable although still a little wobbly and veers to the left. This speech does not seem to be slurred really anymore or minimally. Pending barium swallow and PT eval today. Patient failed PT and will need intermediate facility. A: *Stroke, cerebellar(Ataxia/slurring/right facial droop): -left cerebellar infarct *C-spine arthritis: marked disc narrowing c6-7 *Oropharyngeal Dysphagia, mod-sev: *HTN: *HLD: *Obesity: BMI 33 *Chewing tobacco use: P: -DAPT, statin -ST eval Discharge diagnosis: Stroke dysphagia ataxia Secondary discharge diagnosis: Hypertension hyperlipidemia obesity chewing tobacco Time Spent with Patient Time attestation: Total time spent providing and/or coordinating discharge services: Time spent: Greater than 30 minutes EXAM Constitutional Vitals: Temp Pulse Resp BP Pulse Ox O2 Del Method O2 Flow Rate 97.3 F 103 H 13 135/76 100 Room Air 0 04/01/22 08:01 04/01/22 10:31 04/01/22 10:31 04/01/22 10:31 04/01/22 10:31 04/01/22 04:01 04/01/22 02:05 Discharge Plan Patient/Caregiver Discharge Instructions Activity: increase activity as tolerated Prescriptions: New Aspirin 81 mg PO DAILY Qty: 60 0RF atorvastatin 40 mg Tablet 80 mg PO HS Qty: 30 0RF clopidogrel 75 mg Tablet 75 mg PO DAILY Qty: 30 0RF Continued Prostate Max Plus 125 mg-10 mcg- 250 mg tablet 1 tab PO cholecalciferol (vitamin D3) 50 mcg (2,000 unit) capsule 50 mcg PO QDAY Airborne Gummy 250-11.66 mg tablet,chewable 1 tab PO QDAY multivitamin Tablet 1 tab PO QDAY meclizine 12.5 mg tablet 12.5 mg PO TID PRN (Reason: dizziness) Qty: 20 0RF No Action lisinopril 10 mg tablet 10 mg PO QDAY Qty: 90 3RF Follow Up Plan Follow up with: Juan Treviño PA-C [Primary Care Provider] - Patient Disposition: [facility] Prognosis: Fair Rehab Potential: Fair I certify that the patient requires SNF services: Yes Overall status at discharge: patient is progressing back to baseline QUALITY VTE Deep Vein Thrombosis/Pulmonary Embolism Present on Admission: No
[2022-04-01] MEDS: DEXTROSE 5%-1/2NS W/10MEQ KCL 1,000 ML IV SCH (17:44)
[2022-04-01] MEDS: ATORVASTATIN 40 MG TABLET PO SCH (21:41)
[2022-04-02] MEDS: 0.9 % SODIUM CHLORIDE 10 ML SYRINGE IV SCH ×2 (05:06→21:30)
--- NOTE | 2022-04-02 07:55 | Internal Med Progress Note ---
SUBJECTIVE Subjective Patient information: Note initiated : 04/02/22 at 7:54 am Service Date, if different from initiated Date: [] Patient: Efren Dhillon a 61 y/o M admitted on 04/01/22 for DIZZY, NUMBNESS, SLUR SPEACH. Chief Complaint: [] Interval history: History of present illness: Mr. Dhillon is a 61 year old M Presents to the ED with dizziness and lightheadedness and ataxia, which she has on occasion but much worse. More notably says his right facial droop and slurring of speech is new. Sounds like per his his speech seemed garbled at 1 point. Last seen normal last night. His symptoms have Remaining for hours. They have had some improvement in his facial droop and slurring since this morning although still present to a degree. He does admit to some right hand tingling which is since resolved. No focal weakness in his arms or legs. Patient has headache and neck pain has had that since he fell onto hunting few months ago. Saw chiropractor yesterday which she has been seen for the neck pain. And had adjustment. CTA head and neck in the ED showed no acute stroke or significant stenosis. Blood pressure elevated on admission. Patient takes lisinopril daily and has been taking it as prescribed. Case discussed with stroke neurologist who recommended dual antiplatelets and finish work-up. No recent illnesses. EKG normal sinus rhythm 2/ Patient complains of numbness on his face as well as right arm. MRI cervical spine pending. Blood pressures come down on its own. Does complain of pyrosis. 2/ Patient had medications applesauce and that seemed to go well. Then had some medications with pudding and had coughing with that. We did ambulate in the hallway and did feel wobbly but he says better than yesterday. CT C-spine showed severe arthritis and C6-C7 with disc narrowing and 7 mm lacunar infarct in the left cerebellar hemisphere reported as nonacute at the time of the image taken. Speech therapy to reevaluate patient today and awaiting physical therapy eval. 04/02 Patient says he is feeling improvement today. I did catch him up with his walker going to the bathroom back. Instruct importance of waiting for staff to help him. He does say that he is walking better and more stable although still a little wobbly and veers to the left. This speech does not seem to be slurred really anymore or minimally. Pending barium swallow and PT eval today. Review of Systems: denies headache/fever/chills/nausea/vomiting/chest or abdominal pain/cough/dyspnea/diarrhea. Otherwise see above. Constitutional Vitals: Vital Signs Temp Pulse Resp BP Pulse Ox O2 Del Method O2 Flow Rate 97.2 F 71 18 135/78 97 Room Air 0 04/02/22 04:00 04/02/22 04:00 04/02/22 04:00 04/02/22 04:00 04/02/22 04:00 04/02/22 04:00 04/01/22 02:05 Period Temp Pulse Resp BP Sys/Lewis Pulse Ox O2 Del Method O2 Flow Rate Last 24 Hr 97.2 F-98.3 F 71-103 13-22 113-135/62-85 97-100 Room Air-Room Air Intake and Output 04/01/22 04/02/22 04/02/22 19:59 03:59 11:59 Intake Total 100 100 Output Total 250 275 Balance -150 -175 Weight 95.339 kg Intake & Output: Intake & Output 04/01/22 04/02/22 04/02/22 19:59 03:59 11:59 Intake Total 100 100 Output Total 250 275 Balance -150 -175 Weight 95.339 kg Intake: Oral 100 100 Output: Void Amount 250 275 Other: Meal Lunch Percent of Meal Consumed 100% Feeding Ability Needs Supervision Urine Appearance Clear Clear Urine Color Bright Yellow Bright Yellow Urine Odor Normal Normal # Bowel Movements 0 Exam: General: Alert, Awake, No acute Distress Eyes/N/T: EOMI, , Head/Neck: neck supple, CV: RRR, No murmurs, Pulm: Clear b/l, no wheezing/rhonchi/rales Abd: soft, nontender, +BS x4 Ext: no clubbing/cyanosis/edema Neuro: Alert, slurring greatly improved, truncal ataxia Skin: warm/dry OBJ DATA Labs 03/30/22 07:03 03/31/22 05:30 Labs: Abnormal Lab Results 03/31/22 03/30/22 03/30/22 05:30 07:30 07:03 RDW 14.8 H Glucose 111 H Lactate Dehydrogenase 134 L Cholesterol 226 H LDL Cholesterol, Calc 132 H Non-HDL Cholesterol 160 H Meds: Medications Acetaminophen (Acetaminophen 325 Mg Tablet) 650 mg PO Q6HP PRN; Protocol PRN Reason: Per Pain Protocol/Fever > 101 Hydrocodone Bitart/Acetaminophen (Hydrocodone/Apap 5/325mg Tablet) 1 tab PO Q4HP PRN PRN Reason: PAIN LEVEL 3-6 Albuterol/Ipratropium (Ipratropium/Albuterol 3 Ml Ampul.Neb) 3 ml NEB Q4HP PRN PRN Reason: Shortness Of Breath Aspirin (Aspirin 81 Mg Tab.Chew) 81 mg PO DAILY [facility] Last Admin: 04/01/22 09:09 Dose: 81 mg Atorvastatin Calcium (Atorvastatin 40 Mg Tablet) 80 mg PO HS [facility] Last Admin: 04/01/22 21:41 Dose: 80 mg Calcium Carbonate/Glycine (Calcium Carbonate 500 Mg Tab.Chew) 1,000 mg CHEWED Q4HP PRN PRN Reason: Dyspepsia Last Admin: 04/01/22 21:41 Dose: 1,000 mg Clopidogrel Bisulfate (Clopidogrel 75 Mg Tablet) 75 mg PO DAILY [facility] Last Admin: 04/01/22 09:09 Dose: 75 mg Enoxaparin Sodium (Enoxaparin 40 Mg/0.4 Ml Syringe) 40 mg SQ DAILY [facility] Last Admin: 04/01/22 09:09 Dose: 40 mg Potassium Chloride 40 meq/ (Dextrose) 520 mls @ 130 mls/hr IV UD PRN PRN Reason: Potassium < 3 Magnesium Sulfate (Magnesium Sulfate) 2 gm in 50 mls @ 50 mls/hr IV UD PRN PRN Reason: Magnesium </= 1.6 Labetalol HCl (Labetalol 5 Mg/Ml Ml) 0 mg IV Q2HP PRN PRN Reason: Hypertension Meclizine HCl (Meclizine 25 Mg Tablet) 12.5 mg PO TIDP PRN PRN Reason: Vertigo Last Admin: 03/31/22 05:41 Dose: 12.5 mg Nicotine (Nicotine 21 Mg Patch) 21 mg TOPICAL DAILY@1000 [facility] Last Admin: 04/01/22 09:09 Dose: 21 mg Nicotine Polacrilex (Nicotine Polacrilex 2 Mg Gum) 2 mg CHEW/PARK Q4HP PRN PRN Reason: smoking Last Admin: 03/30/22 16:32 Dose: 2 mg Ondansetron HCl (Ondansetron 4 Mg/2 Ml Vial) 4 mg IV Q4HP PRN PRN Reason: Nausea And Vomiting Last Admin: 03/30/22 19:39 Dose: 4 mg Pantoprazole Sodium (Pantoprazole 40 Mg Vial) 40 mg IV QAMAC [facility] Last Admin: 04/01/22 07:18 Dose: 40 mg Polyethylene Glycol (Polyethylene Glycol 3350 17 Gm Packet) 17 gm PO DAILYP PRN PRN Reason: Constipation Potassium Chloride (Potassium Chloride 20 Meq Tablet) 40 meq PO UD PRN PRN Reason: Potssium is 3-3.5 Potassium Chloride (Potassium Chloride 20 Meq Tablet) 40 meq PO UD PRN PRN Reason: Potassium < 3 Senna (Sennosides 1 Tablet) 2 tab PO DAILYP PRN PRN Reason: Constipation Sodium Chloride (0.9 % Sodium Chloride 10 Ml Syringe) 10 ml IV Q8 [facility] Last Admin: 04/02/22 05:06 Dose: 10 ml A/P Narrative A/P Narrative: A: *Stroke, cerebellar(Ataxia/slurring/right facial droop): continued Ataxia -likely left cerebellar infarct -echo no thrombus or shunts or significant findings -MRI brain a limited study with no noted ischemia noted per limited study -mri c spine with left cerebellar infarct *C-spine arthritis: marked disc narrowing c6-7 *Oropharyngeal Dysphagia, mod-sev: *HTN: *HLD: *Obesity: BMI 33 *Chewing tobacco use: P: -DAPT, statin -restart home ACEI if bp increases -neuro checks -nicotine patch -barium swallow eval pending -[facility], currently on level 6 -PT/OT -CM for placement needs -ppx: Lovenox Time Spent With Patient Time: Total time spent is greater than 50% in coordination of care (as documented) at patient's floor/unit and/or counseling patient: QUALITY Stroke Onset of Symptoms Date: 03/30/22 Onset of Symptoms Time: 04:00 Symptom Onset Unknown: No VTE Deep Vein Thrombosis/Pulmonary Embolism Present on Admission: No
[2022-04-02] MEDS: ASPIRIN 81 MG TAB.CHEW PO SCH (09:09)
[2022-04-02] MEDS: CLOPIDOGREL 75 MG TABLET PO SCH (09:10)
[2022-04-02] MEDS: ENOXAPARIN 40 MG/0.4 ML SYRINGE SQ SCH (09:11)
[2022-04-02] MEDS: NICOTINE 21 MG PATCH TOPICAL SCH (12:14)
[2022-04-02] MEDS: PANTOPRAZOLE 40 MG VIAL IV SCH (12:25)
--- NOTE | 2022-04-02 13:27 | XRay Report ---
INDICATION: dysphagia TECHNIQUE: Modified barium swallow was performed by the speech pathologist. 29 seconds fluoroscopy utilized Thick barium, nectar, and solid material ingested. A tablet was also swallowed. IMPRESSION: Modified barium swallow performed by the speech pathologist Interpreted and Authenticated by: Andres Ernandez 04/02/22
--- NOTE | 2022-04-02 13:33 | EKG ---
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
[2022-04-02] MEDS: ATORVASTATIN 40 MG TABLET PO SCH (21:30)
[2022-04-03] MEDS: 0.9 % SODIUM CHLORIDE 10 ML SYRINGE IV SCH ×3 (04:52→20:27)
--- NOTE | 2022-04-03 08:24 | Internal Med Progress Note ---
SUBJECTIVE Subjective Patient information: Note initiated : 04/03/22 at 8:24 am Service Date, if different from initiated Date: [] Patient: Efren Dhillon a 61 y/o M admitted on 04/01/22 for DIZZY, NUMBNESS, SLUR SPEACH. Chief Complaint: [] Interval history: History of present illness: Mr. Dhillon is a 61 year old M Presents to the ED with dizziness and lightheadedness and ataxia, which she has on occasion but much worse. More notably says his right facial droop and slurring of speech is new. Sounds like per his his speech seemed garbled at 1 point. Last seen normal last night. His symptoms have Remaining for hours. They have had some improvement in his facial droop and slurring since this morning although still present to a degree. He does admit to some right hand tingling which is since resolved. No focal weakness in his arms or legs. Patient has headache and neck pain has had that since he fell onto hunting few months ago. Saw chiropractor yesterday which she has been seen for the neck pain. And had adjustment. CTA head and neck in the ED showed no acute stroke or significant stenosis. Blood pressure elevated on admission. Patient takes lisinopril daily and has been taking it as prescribed. Case discussed with stroke neurologist who recommended dual antiplatelets and finish work-up. No recent illnesses. EKG normal sinus rhythm 2/ Patient complains of numbness on his face as well as right arm. MRI cervical spine pending. Blood pressures come down on its own. Does complain of pyrosis. 2/ Patient had medications applesauce and that seemed to go well. Then had some medications with pudding and had coughing with that. We did ambulate in the hallway and did feel wobbly but he says better than yesterday. CT C-spine showed severe arthritis and C6-C7 with disc narrowing and 7 mm lacunar infarct in the left cerebellar hemisphere reported as nonacute at the time of the image taken. Speech therapy to reevaluate patient today and awaiting physical therapy eval. 04/02 Patient says he is feeling improvement today. I did catch him up with his walker going to the bathroom back. Instruct importance of waiting for staff to help him. He does say that he is walking better and more stable although still a little wobbly and veers to the left. This speech does not seem to be slurred really anymore or minimally. Pending barium swallow and PT eval today. 04/03 Patient was felt to be unsafe by PT yesterday ambulating in the SNF options are being evaluated. Patient little frustrated with being here. Patient feels his ambulation continues to slowly improve Review of Systems: denies headache/fever/chills/nausea/vomiting/chest or abdominal pain/cough/dyspnea/diarrhea. Otherwise see above. Constitutional Vitals: Vital Signs Temp Pulse Resp BP Pulse Ox O2 Del Method O2 Flow Rate 96.7 F L 95 H 14 123/87 97 Room Air 0 04/03/22 07:40 04/03/22 07:40 04/03/22 07:40 04/03/22 07:40 04/03/22 07:40 04/03/22 07:40 04/01/22 02:05 Period Temp Pulse Resp BP Sys/Lewis Pulse Ox O2 Del Method O2 Flow Rate Last 24 Hr 96.7 F-98.1 F 74-104 14-24 110-150/60-98 97-100 Room Air-Room Air Intake and Output 04/02/22 04/03/22 04/03/22 19:59 03:59 11:59 Intake Total 800 300 Output Total 275 125 Balance 800 -275 175 Weight 95.481 kg Intake & Output: Intake & Output 04/02/22 04/03/22 04/03/22 19:59 03:59 11:59 Intake Total 800 300 Output Total 275 125 Balance 800 -275 175 Weight 95.481 kg Intake: Oral 800 300 Output: Void Amount 275 125 Other: Meal Dinner Percent of Meal Consumed 100% Feeding Ability Independent Urine Appearance Clear Clear Urine Color Yellow Yellow Exam: General: Alert, Awake, No acute Distress Eyes/N/T: EOMI, , Head/Neck: neck supple, CV: RRR, No murmurs, Pulm: Clear b/l, no wheezing/rhonchi/rales Abd: soft, nontender, +BS x4 Ext: no clubbing/cyanosis/edema Neuro: Alert, speech pretty clear, truncal ataxia Skin: warm/dry OBJ DATA Labs 03/30/22 07:03 03/31/22 05:30 Meds: Medications Acetaminophen (Acetaminophen 325 Mg Tablet) 650 mg PO Q6HP PRN; Protocol PRN Reason: Per Pain Protocol/Fever > 101 Hydrocodone Bitart/Acetaminophen (Hydrocodone/Apap 5/325mg Tablet) 1 tab PO Q4HP PRN PRN Reason: PAIN LEVEL 3-6 Albuterol/Ipratropium (Ipratropium/Albuterol 3 Ml Ampul.Neb) 3 ml NEB Q4HP PRN PRN Reason: Shortness Of Breath Aspirin (Aspirin 81 Mg Tab.Chew) 81 mg PO DAILY [facility] Last Admin: 04/02/22 09:09 Dose: 81 mg Atorvastatin Calcium (Atorvastatin 40 Mg Tablet) 80 mg PO HS [facility] Last Admin: 04/02/22 21:30 Dose: 80 mg Calcium Carbonate/Glycine (Calcium Carbonate 500 Mg Tab.Chew) 1,000 mg CHEWED Q4HP PRN PRN Reason: Dyspepsia Last Admin: 04/01/22 21:41 Dose: 1,000 mg Clopidogrel Bisulfate (Clopidogrel 75 Mg Tablet) 75 mg PO DAILY [facility] Last Admin: 04/02/22 09:10 Dose: 75 mg Enoxaparin Sodium (Enoxaparin 40 Mg/0.4 Ml Syringe) 40 mg SQ DAILY [facility] Last Admin: 04/02/22 09:11 Dose: 40 mg Potassium Chloride 40 meq/ (Dextrose) 520 mls @ 130 mls/hr IV UD PRN PRN Reason: Potassium < 3 Magnesium Sulfate (Magnesium Sulfate) 2 gm in 50 mls @ 50 mls/hr IV UD PRN PRN Reason: Magnesium </= 1.6 Labetalol HCl (Labetalol 5 Mg/Ml Ml) 0 mg IV Q2HP PRN PRN Reason: Hypertension Meclizine HCl (Meclizine 25 Mg Tablet) 12.5 mg PO TIDP PRN PRN Reason: Vertigo Last Admin: 03/31/22 05:41 Dose: 12.5 mg Nicotine (Nicotine 21 Mg Patch) 21 mg TOPICAL DAILY@1000 [facility] Last Admin: 04/02/22 12:14 Dose: Not Given Nicotine Polacrilex (Nicotine Polacrilex 2 Mg Gum) 2 mg CHEW/PARK Q4HP PRN PRN Reason: smoking Last Admin: 03/30/22 16:32 Dose: 2 mg Ondansetron HCl (Ondansetron 4 Mg/2 Ml Vial) 4 mg IV Q4HP PRN PRN Reason: Nausea And Vomiting Last Admin: 03/30/22 19:39 Dose: 4 mg Pantoprazole Sodium (Pantoprazole 40 Mg Tablet) 40 mg PO QAMAC [facility] Polyethylene Glycol (Polyethylene Glycol 3350 17 Gm Packet) 17 gm PO DAILYP PRN PRN Reason: Constipation Potassium Chloride (Potassium Chloride 20 Meq Tablet) 40 meq PO UD PRN PRN Reason: Potssium is 3-3.5 Potassium Chloride (Potassium Chloride 20 Meq Tablet) 40 meq PO UD PRN PRN Reason: Potassium < 3 Senna (Sennosides 1 Tablet) 2 tab PO DAILYP PRN PRN Reason: Constipation Sodium Chloride (0.9 % Sodium Chloride 10 Ml Syringe) 10 ml IV Q8 [facility] Last Admin: 04/03/22 04:52 Dose: 10 ml A/P Narrative A/P Narrative: A: *Stroke, cerebellar(Ataxia/slurring/right facial droop): continued Ataxia -likely left cerebellar infarct -echo no thrombus or shunts or significant findings -MRI brain a limited study with no noted ischemia noted per limited study -mri c spine with left cerebellar infarct *C-spine arthritis: marked disc narrowing c6-7 *Oropharyngeal Dysphagia, mod-sev: *HTN: *HLD: *Obesity: BMI 33 *Chewing tobacco use: P: -DAPT, statin -restart home ACEI if bp increases -neuro checks -nicotine patch -ST following, currently on level 6 -PT/OT -CM for placement needs -ppx: Lovenox Time Spent With Patient Time: Total time spent is greater than 50% in coordination of care (as documented) at patient's floor/unit and/or counseling patient: Subsequent: Total time with patient: 35 - 49 minutes QUALITY Stroke Onset of Symptoms Date: 03/30/22 Onset of Symptoms Time: 04:00 Symptom Onset Unknown: No VTE Deep Vein Thrombosis/Pulmonary Embolism Present on Admission: No
[2022-04-03] MEDS: ASPIRIN 81 MG TAB.CHEW PO SCH (09:15)
[2022-04-03] MEDS: CLOPIDOGREL 75 MG TABLET PO SCH (09:15)
[2022-04-03] MEDS: ENOXAPARIN 40 MG/0.4 ML SYRINGE SQ SCH (09:15)
[2022-04-03] MEDS: PANTOPRAZOLE 40 MG TABLET PO SCH (09:15)
--- NOTE | 2022-04-03 13:08 | Internal Med Progress Note ---
SUBJECTIVE Subjective Patient information: Note initiated : 04/03/22 at 1:04 pm Service Date, if different from initiated Date: [] Patient: Efren Dhillon a 61 y/o M admitted on 04/01/22 for DIZZY, NUMBNESS, SLUR SPEACH. Chief Complaint: [] Interval history: History of present illness: Mr. Dhillon is a 61 year old M Presents to the ED with dizziness and lightheadedness and ataxia, which she has on occasion but much worse. More notably says his right facial droop and slurring of speech is new. Sounds like per his his speech seemed garbled at 1 point. Last seen normal last night. His symptoms have Remaining for hours. They have had some improvement in his facial droop and slurring since this morning although still present to a degree. He does admit to some right hand tingling which is since resolved. No focal weakness in his arms or legs. Patient has headache and neck pain has had that since he fell onto hunting few months ago. Saw chiropractor yesterday which she has been seen for the neck pain. And had adjustment. CTA head and neck in the ED showed no acute stroke or significant stenosis. Blood pressure elevated on admission. Patient takes lisinopril daily and has been taking it as prescribed. Case discussed with stroke neurologist who recommended dual antiplatelets and finish work-up. No recent illnesses. EKG normal sinus rhythm 2/ Patient complains of numbness on his face as well as right arm. MRI cervical spine pending. Blood pressures come down on its own. Does complain of pyrosis. 2/ Patient had medications applesauce and that seemed to go well. Then had some medications with pudding and had coughing with that. We did ambulate in the hallway and did feel wobbly but he says better than yesterday. CT C-spine showed severe arthritis and C6-C7 with disc narrowing and 7 mm lacunar infarct in the left cerebellar hemisphere reported as nonacute at the time of the image taken. Speech therapy to reevaluate patient today and awaiting physical therapy eval. 04/02 Patient says he is feeling improvement today. I did catch him up with his walker going to the bathroom back. Instruct importance of waiting for staff to help him. He does say that he is walking better and more stable although still a little wobbly and veers to the left. This speech does not seem to be slurred really anymore or minimally. Pending barium swallow and PT eval today. 04/03 Patient was felt to be unsafe by PT yesterday ambulating in the SNF options are being evaluated. Patient little frustrated with being here. Patient feels his ambulation continues to slowly improve 04/04 No significant events overnight, awaiting insurance authorization for high intensity rehab. Physical exam Head: Atraumatic, normal inspection. Eyes: normal appearance, no scleral icterus. Neck: full ROM Respiratory: no respiratory distress. Cardiovascular: normal rate and rhythm, S1, S2. GI/Abdominal: soft, nontender, no guarding. Extremities: full range of motion, nontender. Neurological: Right facial droop, intact sensation. Psychiatric: normal mood. Skin: warm, normal color Constitutional Vitals: Vital Signs Temp Pulse Resp BP Pulse Ox O2 Del Method O2 Flow Rate 96.7 F L 95 H 14 123/87 97 Room Air 0 04/03/22 07:40 04/03/22 07:40 04/03/22 07:40 04/03/22 07:40 04/03/22 07:40 04/03/22 07:40 04/01/22 02:05 Period Temp Pulse Resp BP Sys/Lewis Pulse Ox O2 Del Method O2 Flow Rate Last 24 Hr 96.7 F-98.1 F 74-104 14-24 110-144/60-91 97-100 Room Air-Room Air Intake and Output 04/03/22 04/03/22 04/03/22 03:59 11:59 19:59 Intake Total 300 Output Total 275 125 Balance -275 175 Weight 95.481 kg 95.481 kg Patient Weight 04/04/22 03:59 Weight 95.481 kg Intake & Output: Intake & Output 04/03/22 04/03/22 04/03/22 03:59 11:59 19:59 Intake Total 300 Output Total 275 125 Balance -275 175 Weight 95.481 kg 95.481 kg Intake: Oral 300 Output: Void Amount 275 125 Other: Urine Appearance Clear Clear Urine Color Yellow Yellow Stool Color Brown # of times incontinent of 1 Bowels OBJ DATA Labs 03/30/22 07:03 03/31/22 05:30 Meds: Medications Acetaminophen (Acetaminophen 325 Mg Tablet) 650 mg PO Q6HP PRN; Protocol PRN Reason: Per Pain Protocol/Fever > 101 Hydrocodone Bitart/Acetaminophen (Hydrocodone/Apap 5/325mg Tablet) 1 tab PO Q4HP PRN PRN Reason: PAIN LEVEL 3-6 Albuterol/Ipratropium (Ipratropium/Albuterol 3 Ml Ampul.Neb) 3 ml NEB Q4HP PRN PRN Reason: Shortness Of Breath Aspirin (Aspirin 81 Mg Tab.Chew) 81 mg PO DAILY [facility] Last Admin: 04/03/22 09:15 Dose: 81 mg Atorvastatin Calcium (Atorvastatin 40 Mg Tablet) 80 mg PO HS [facility] Last Admin: 04/02/22 21:30 Dose: 80 mg Calcium Carbonate/Glycine (Calcium Carbonate 500 Mg Tab.Chew) 1,000 mg CHEWED Q4HP PRN PRN Reason: Dyspepsia Last Admin: 04/01/22 21:41 Dose: 1,000 mg Clopidogrel Bisulfate (Clopidogrel 75 Mg Tablet) 75 mg PO DAILY [facility] Last Admin: 04/03/22 09:15 Dose: 75 mg Enoxaparin Sodium (Enoxaparin 40 Mg/0.4 Ml Syringe) 40 mg SQ DAILY [facility] Last Admin: 04/03/22 09:15 Dose: 40 mg Potassium Chloride 40 meq/ (Dextrose) 520 mls @ 130 mls/hr IV UD PRN PRN Reason: Potassium < 3 Magnesium Sulfate (Magnesium Sulfate) 2 gm in 50 mls @ 50 mls/hr IV UD PRN PRN Reason: Magnesium </= 1.6 Labetalol HCl (Labetalol 5 Mg/Ml Ml) 0 mg IV Q2HP PRN PRN Reason: Hypertension Meclizine HCl (Meclizine 25 Mg Tablet) 12.5 mg PO TIDP PRN PRN Reason: Vertigo Last Admin: 03/31/22 05:41 Dose: 12.5 mg Nicotine (Nicotine 21 Mg Patch) 21 mg TOPICAL DAILY@1000 [facility] Last Admin: 04/02/22 12:14 Dose: Not Given Nicotine Polacrilex (Nicotine Polacrilex 2 Mg Gum) 2 mg CHEW/PARK Q4HP PRN PRN Reason: smoking Last Admin: 03/30/22 16:32 Dose: 2 mg Ondansetron HCl (Ondansetron 4 Mg/2 Ml Vial) 4 mg IV Q4HP PRN PRN Reason: Nausea And Vomiting Last Admin: 03/30/22 19:39 Dose: 4 mg Pantoprazole Sodium (Pantoprazole 40 Mg Tablet) 40 mg PO QAMAC [facility] Last Admin: 04/03/22 09:15 Dose: 40 mg Polyethylene Glycol (Polyethylene Glycol 3350 17 Gm Packet) 17 gm PO DAILYP PRN PRN Reason: Constipation Potassium Chloride (Potassium Chloride 20 Meq Tablet) 40 meq PO UD PRN PRN Reason: Potssium is 3-3.5 Potassium Chloride (Potassium Chloride 20 Meq Tablet) 40 meq PO UD PRN PRN Reason: Potassium < 3 Senna (Sennosides 1 Tablet) 2 tab PO DAILYP PRN PRN Reason: Constipation Sodium Chloride (0.9 % Sodium Chloride 10 Ml Syringe) 10 ml IV Q8 [facility] Last Admin: 04/03/22 04:52 Dose: 10 ml A/P Narrative A/P Narrative: Assessment: 61-year-old male with a history of hypertension, hyperlipidemia, tobacco use, obesity admitted for ataxia, oral pharyngeal dysphagia likely secondary to a left inferior cerebellar lacunar infarct. *Stroke, cerebellar(Ataxia/slurring/right facial droop): continued Ataxia -likely left cerebellar infarct -echo no thrombus or shunts or significant findings -MRI brain a limited study with no noted ischemia noted per limited study -mri c spine with left cerebellar infarct *C-spine arthritis: marked disc narrowing c6-7 *Oropharyngeal Dysphagia, mod-sev: *HTN: *HLD: *Obesity: BMI 33 *Chewing tobacco use: P: -Aspirin and Plavix, statin -restart home ACEI if bp increases -neuro checks -nicotine patch -ST following -PT/OT -Awaiting insurance authorization for high intensity rehab. -ppx: Lovenox -CODE STATUS: Full -Disposition: High intensity rehab when insurance approved. Time Spent With Patient Time: Total time spent is greater than 50% in coordination of care (as documented) at patient's floor/unit and/or counseling patient: QUALITY Stroke Onset of Symptoms Date: 03/30/22 Onset of Symptoms Time: 04:00 Symptom Onset Unknown: No VTE Deep Vein Thrombosis/Pulmonary Embolism Present on Admission: No
[2022-04-03] MEDS: NICOTINE 21 MG PATCH TOPICAL SCH (15:23)
[2022-04-03] MEDS: CALCIUM CARBONATE 500 MG TAB.CHEW CHEWED PRN (18:05)
[2022-04-03] MEDS: ATORVASTATIN 40 MG TABLET PO SCH (20:27)
[2022-04-04] MEDS: 0.9 % SODIUM CHLORIDE 10 ML SYRINGE IV SCH ×3 (05:02→20:16)
[2022-04-04] MEDS: ENOXAPARIN 40 MG/0.4 ML SYRINGE SQ SCH (08:30)
[2022-04-04] MEDS: ASPIRIN 81 MG TAB.CHEW PO SCH (08:30)
[2022-04-04] MEDS: CLOPIDOGREL 75 MG TABLET PO SCH (08:30)
[2022-04-04] MEDS: PANTOPRAZOLE 40 MG TABLET PO SCH (08:30)
[2022-04-04] MEDS: NICOTINE 21 MG PATCH TOPICAL SCH (10:49)
[2022-04-04] MEDS: ATORVASTATIN 40 MG TABLET PO SCH (20:16)
[2022-04-05] MEDS: 0.9 % SODIUM CHLORIDE 10 ML SYRINGE IV SCH (07:00)
[2022-04-05] MEDS: PANTOPRAZOLE 40 MG TABLET PO SCH (07:00)
[2022-04-05] MEDS: ENOXAPARIN 40 MG/0.4 ML SYRINGE SQ SCH (09:15)
[2022-04-05] MEDS: ASPIRIN 81 MG TAB.CHEW PO SCH (09:15)
[2022-04-05] MEDS: CLOPIDOGREL 75 MG TABLET PO SCH (09:15)
[2022-04-05] MEDS: NICOTINE 21 MG PATCH TOPICAL SCH (09:21)
--- NOTE | 2022-04-05 10:37 | Internal Med Progress Note ---
SUBJECTIVE Subjective Patient information: Note initiated : 04/05/22 at 10:35 am Service Date, if different from initiated Date: [] Patient: Efren Dhillon a 61 y/o M admitted on 04/01/22 for DIZZY, NUMBNESS, SLUR SPEACH. Chief Complaint: [] Interval history: History of present illness: Mr. Dhillon is a 61 year old M Presents to the ED with dizziness and lightheadedness and ataxia, which she has on occasion but much worse. More notably says his right facial droop and slurring of speech is new. Sounds like per his his speech seemed garbled at 1 point. Last seen normal last night. His symptoms have Remaining for hours. They have had some improvement in his facial droop and slurring since this morning although still present to a degree. He does admit to some right hand tingling which is since resolved. No focal weakness in his arms or legs. Patient has headache and neck pain has had that since he fell onto hunting few months ago. Saw chiropractor yesterday which she has been seen for the neck pain. And had adjustment. CTA head and neck in the ED showed no acute stroke or significant stenosis. Blood pressure elevated on admission. Patient takes lisinopril daily and has been taking it as prescribed. Case discussed with stroke neurologist who recommended dual antiplatelets and finish work-up. No recent illnesses. EKG normal sinus rhythm 2/ Patient complains of numbness on his face as well as right arm. MRI cervical spine pending. Blood pressures come down on its own. Does complain of pyrosis. / Patient had medications applesauce and that seemed to go well. Then had some medications with pudding and had coughing with that. We did ambulate in the hallway and did feel wobbly but he says better than yesterday. CT C-spine showed severe arthritis and C6-C7 with disc narrowing and 7 mm lacunar infarct in the left cerebellar hemisphere reported as nonacute at the time of the image taken. Speech therapy to reevaluate patient today and awaiting physical therapy eval. 04/02 Patient says he is feeling improvement today. I did catch him up with his walker going to the bathroom back. Instruct importance of waiting for staff to help him. He does say that he is walking better and more stable although still a little wobbly and veers to the left. This speech does not seem to be slurred really anymore or minimally. Pending barium swallow and PT eval today. 04/03 Patient was felt to be unsafe by PT yesterday ambulating in the SNF options are being evaluated. Patient little frustrated with being here. Patient feels his ambulation continues to slowly improve 04/04 No significant events overnight, awaiting insurance authorization for high intensity rehab. 04/05 Vital stable, no significant events since yesterday. The patient is working with physical therapy, gradually improving from stroke deficits. Awaiting insurance authorization for high intensity rehab. Physical exam Head: Atraumatic, normal inspection. Eyes: normal appearance, no scleral icterus. Neck: full ROM Respiratory: no respiratory distress. Cardiovascular: normal rate and rhythm, S1, S2. GI/Abdominal: soft, nontender, no guarding. Extremities: full range of motion, nontender. Neurological: Right facial droop, intact sensation. Psychiatric: normal mood. Skin: warm, normal color Constitutional Vitals: Vital Signs Temp Pulse Resp BP Pulse Ox O2 Del Method O2 Flow Rate 96.7 F L 87 20 122/85 95 Room Air 0 04/05/22 07:49 04/05/22 07:49 04/05/22 07:49 04/05/22 07:49 04/05/22 07:49 04/05/22 07:49 04/01/22 02:05 Period Temp Pulse Resp BP Sys/Lewis Pulse Ox O2 Del Method O2 Flow Rate Last 24 Hr 96.7 F-97.9 F 72-108 20-24 122-146/70-93 95-99 Room Air-Room Air Intake and Output 04/04/22 04/05/22 04/05/22 19:59 03:59 11:59 Intake Total 240 340 Output Total 900 350 Balance -660 -10 Weight 94.574 kg Intake & Output: Intake & Output 04/04/22 04/05/22 04/05/22 19:59 03:59 11:59 Intake Total 240 340 Output Total 900 350 Balance -660 -10 Weight 94.574 kg Intake: Oral 240 340 Output: Void Amount 900 350 Other: Meal Dinner Percent of Meal Consumed 100% Urine Appearance Clear Clear Urine Color Dark Yellow Yellow # Voids 1 OBJ DATA Labs 03/30/22 07:03 03/31/22 05:30 Meds: Medications Acetaminophen (Acetaminophen 325 Mg Tablet) 650 mg PO Q6HP PRN; Protocol PRN Reason: Per Pain Protocol/Fever > 101 Hydrocodone Bitart/Acetaminophen (Hydrocodone/Apap 5/325mg Tablet) 1 tab PO Q4HP PRN PRN Reason: PAIN LEVEL 3-6 Albuterol/Ipratropium (Ipratropium/Albuterol 3 Ml Ampul.Neb) 3 ml NEB Q4HP PRN PRN Reason: Shortness Of Breath Aspirin (Aspirin 81 Mg Tab.Chew) 81 mg PO DAILY [facility] Last Admin: 04/05/22 09:15 Dose: 81 mg Atorvastatin Calcium (Atorvastatin 40 Mg Tablet) 80 mg PO HS [facility] Last Admin: 04/04/22 20:16 Dose: 80 mg Calcium Carbonate/Glycine (Calcium Carbonate 500 Mg Tab.Chew) 1,000 mg CHEWED Q4HP PRN PRN Reason: Dyspepsia Last Admin: 04/03/22 18:05 Dose: 1,000 mg Clopidogrel Bisulfate (Clopidogrel 75 Mg Tablet) 75 mg PO DAILY [facility] Last Admin: 04/05/22 09:15 Dose: 75 mg Enoxaparin Sodium (Enoxaparin 40 Mg/0.4 Ml Syringe) 40 mg SQ DAILY [facility] Last Admin: 04/05/22 09:15 Dose: 40 mg Potassium Chloride 40 meq/ (Dextrose) 520 mls @ 130 mls/hr IV UD PRN PRN Reason: Potassium < 3 Magnesium Sulfate (Magnesium Sulfate) 2 gm in 50 mls @ 50 mls/hr IV UD PRN PRN Reason: Magnesium </= 1.6 Labetalol HCl (Labetalol 5 Mg/Ml Ml) 0 mg IV Q2HP PRN PRN Reason: Hypertension Meclizine HCl (Meclizine 25 Mg Tablet) 12.5 mg PO TIDP PRN PRN Reason: Vertigo Last Admin: 03/31/22 05:41 Dose: 12.5 mg Nicotine (Nicotine 21 Mg Patch) 21 mg TOPICAL DAILY@1000 [facility]ELI Last Admin: 04/05/22 09:21 Dose: Not Given Nicotine Polacrilex (Nicotine Polacrilex 2 Mg Gum) 2 mg CHEW/PARK Q4HP PRN PRN Reason: smoking Last Admin: 03/30/22 16:32 Dose: 2 mg Ondansetron HCl (Ondansetron 4 Mg/2 Ml Vial) 4 mg IV Q4HP PRN PRN Reason: Nausea And Vomiting Last Admin: 03/30/22 19:39 Dose: 4 mg Pantoprazole Sodium (Pantoprazole 40 Mg Tablet) 40 mg PO QAMAC [facility] Last Admin: 04/05/22 07:00 Dose: 40 mg Polyethylene Glycol (Polyethylene Glycol 3350 17 Gm Packet) 17 gm PO DAILYP PRN PRN Reason: Constipation Potassium Chloride (Potassium Chloride 20 Meq Tablet) 40 meq PO UD PRN PRN Reason: Potssium is 3-3.5 Potassium Chloride (Potassium Chloride 20 Meq Tablet) 40 meq PO UD PRN PRN Reason: Potassium < 3 Senna (Sennosides 1 Tablet) 2 tab PO DAILYP PRN PRN Reason: Constipation Sodium Chloride (0.9 % Sodium Chloride 10 Ml Syringe) 10 ml IV Q8 [facility] Last Admin: 04/05/22 07:00 Dose: 10 ml A/P Narrative A/P Narrative: Assessment: 61-year-old male with a history of hypertension, hyperlipidemia, tobacco use, obesity admitted for ataxia, oral pharyngeal dysphagia likely secondary to a left inferior cerebellar lacunar infarct. *Stroke, cerebellar(Ataxia/slurring/right facial droop): continued Ataxia -likely left cerebellar infarct -echo no thrombus or shunts or significant findings -MRI brain a limited study with no noted ischemia noted per limited study -mri c spine with left cerebellar infarct *C-spine arthritis: marked disc narrowing c6-7 *Oropharyngeal Dysphagia, mod-sev: *HTN: *HLD: *Obesity: BMI 33 *Chewing tobacco use: P: -Aspirin and Plavix, statin -restart home ACEI if bp increases -nicotine patch -ST following -PT/OT -Awaiting insurance authorization for high intensity rehab. -ppx: Lovenox -CODE STATUS: Full -Disposition: High intensity rehab when cleared by insurance. Time Spent With Patient Time: Total time spent is greater than 50% in coordination of care (as documented) at patient's floor/unit and/or counseling patient: QUALITY Stroke Onset of Symptoms Date: 03/30/22 Onset of Symptoms Time: 04:00 Symptom Onset Unknown: No VTE Deep Vein Thrombosis/Pulmonary Embolism Present on Admission: No
[2022-04-05] MEDS: ATORVASTATIN 40 MG TABLET PO SCH (20:47)
[2022-04-06] MEDS: PANTOPRAZOLE 40 MG TABLET PO SCH (07:46)
[2022-04-06] MEDS: ENOXAPARIN 40 MG/0.4 ML SYRINGE SQ SCH (09:01)
[2022-04-06] MEDS: CLOPIDOGREL 75 MG TABLET PO SCH (09:01)
[2022-04-06] MEDS: ASPIRIN 81 MG TAB.CHEW PO SCH (09:01)
[2022-04-06] MEDS: NICOTINE 21 MG PATCH TOPICAL SCH (09:27)
--- NOTE | 2022-04-06 10:37 | Discharge Summary ---
Discharge Provider Provider IMPORTANT FOLLOW-UP INFORMATION FOR PCP: Patient information: Note initiated : 04/06/22 at 10:33 am Service Date, if different from initiated Date: [] Patient: Efren Dhillon 61 y/o M admitted on 04/01/22 for DIZZY, NUMBNESS, SLUR SPEACH. Chief Complaint: [] Date of admission: 04/01/22 11:28 Discharge date: 04/06/22 Primary care physician: Juan Treviño PA-C Consults: 03/30/22 Consult to Physician [CONS] Stat Comment: Consulting Provider: Amando Kamara Reason For Exam: Physician to Consult 03/30/22 07:03 Consult to Physician [CONS] Stat Comment: Consulting Provider: [facility] Reason For Exam: Physician to Consult COURSE Hospital Course Hospital course: Mr. Dhillon is a 61 year old M Presents to the ED with dizziness and lightheadedness and ataxia, which she has on occasion but much worse. More notably says his right facial droop and slurring of speech is new. Sounds like per his his speech seemed garbled at 1 point. Last seen normal last night. His symptoms have Remaining for hours. They have had some improvement in his facial droop and slurring since this morning although still present to a degree. He does admit to some right hand tingling which is since resolved. No focal weakness in his arms or legs. Patient has headache and neck pain has had that since he fell onto hunting few months ago. Saw chiropractor yesterday which she has been seen for the neck pain. And had adjustment. CTA head and neck in the ED showed no acute stroke or significant stenosis. Blood pressure elevated on admission. Patient takes lisinopril daily and has been taking it as prescribed. Case discussed with stroke neurologist who recommended dual antiplatelets and finish work-up. No recent illnesses. EKG normal sinus rhythm 2/4 Patient complains of numbness on his face as well as right arm. MRI cervical spine pending. Blood pressures come down on its own. Does complain of pyrosis. 2/5 Patient had medications applesauce and that seemed to go well. Then had some medications with pudding and had coughing with that. We did ambulate in the hallway and did feel wobbly but he says better than yest tj. CT C-spine showed severe arthritis and C6-C7 with disc narrowing and 7 mm lacunar infarct in the left cerebellar hemisphere reported as nonacute at the time of the image taken. Speech therapy to reevaluate patient today and awaiting physical therapy eval. 04/02 Patient says he is feeling improvement today. I did catch him up with his walker going to the bathroom back. Instruct importance of waiting for staff to help him. He does say that he is walking better and more stable although still a little wobbly and veers to the left. This speech does not seem to be slurred really anymore or minimally. Pending barium swallow and PT eval today. 04/03 Patient was felt to be unsafe by PT yesterday ambulating in the SNF options are being evaluated. Patient little frustrated with being here. Patient feels his ambulation continues to slowly improve 04/04 No significant events overnight, awaiting insurance authorization for high intensity rehab. 04/05 Vital stable, no significant events since yesterday. The patient is working with physical therapy, gradually improving from stroke deficits. Awaiting insurance authorization for high intensity rehab. 04/06 Vital stable overnight, the patient continues to improve from the stroke deficits. Insurance authorization has yet to be provided. The facility for high intensity rehab will not be able to accept the patient until Saturday. The patient decided to go home instead of waiting the weekend for insurance authorization as well as acceptance for high intensity rehab. Patient is discharged on aspirin which she will take indefinitely as well as Plavix which she will take for 21 days. Patient was also discharged on atorvastatin. The patient's blood pressure was in the normal range off lisinopril 10 mg daily which is what the patient was taking prior to admission. I therefore decrease the lisinopril dose to 2.5 mg daily. The patient will follow-up with his primary care provider for further management of blood pressure. A referral to the [facility] was requested at discharge in the clinic stated that they would contact the patient for further details regarding date and time. The patient should probably have a subcutaneous cooperative education coordinator placed for long-term evaluation of possible atrial fibrillation as the cause of this stroke was not determined. The patient was discharged to home with home health. Physical exam Head: Atraumatic, normal inspection. Eyes: normal appearance, no scleral icterus. Neck: full ROM Respiratory: no respiratory distress. Cardiovascular: normal rate and rhythm, S1, S2. GI/Abdominal: soft, nontender, no guarding. Extremities: full range of motion, nontender. Neurological: Right facial droop, intact sensation. Psychiatric: normal mood. Skin: warm, normal color Discharge diagnosis: Cerebellar stroke Secondary discharge diagnosis: Ataxia Dysphagia Time Spent with Patient Time attestation: Total time spent providing and/or coordinating discharge services: Time spent: Greater than 30 minutes EXAM Constitutional Vitals: Temp Pulse Resp BP Pulse Ox O2 Del Method O2 Flow Rate 97.7 F 82 16 124/88 99 Room Air 0 04/06/22 07:37 04/06/22 07:37 04/06/22 07:37 04/06/22 07:37 04/06/22 07:37 04/06/22 07:37 04/01/22 02:05 Discharge Plan Patient/Caregiver Discharge Instructions Activity: increase activity as tolerated Diet: Regular Diet and Dysphagia Level 6 Soft & Bite-Sized Foods Activity Restrictions/Additional Instructions: We have sent a referral to [facility] for CVA. Their contact informations: [id number], [place]. [id number]. . They should contact you with an appointment. Prescriptions: New Aspirin 81 mg PO DAILY Qty: 60 0RF atorvastatin 40 mg Tablet 80 mg PO HS Qty: 30 0RF lisinopril 2.5 mg tablet 2.5 mg PO QDAY Qty: 60 3RF clopidogrel [Plavix] 75 mg tablet 75 mg PO QDAY 16 Days Qty: 16 0RF Continued Prostate Max Plus 125 mg-10 mcg- 250 mg tablet 1 tab PO cholecalciferol (vitamin D3) 50 mcg (2,000 unit) capsule 50 mcg PO QDAY Airborne Gummy 250-11.66 mg tablet,chewable 1 tab PO QDAY multivitamin Tablet 1 tab PO QDAY meclizine 12.5 mg tablet 12.5 mg PO TID PRN (Reason: dizziness) Qty: 20 0RF Discontinued lisinopril 10 mg tablet 10 mg PO QDAY Qty: 90 3RF Follow Up Plan Follow up with: Juan Treviño PA-C [Primary Care Provider] - Patient Disposition: Home Health Service Prognosis: Fair Rehab Potential: Fair I certify that the patient requires SNF services: Yes Overall status at discharge: patient is progressing back to baseline Discharge Orders: Discharge Order (Routine); Ordered 04/06/22 Ordered By: Eliezer CANDELARIA VTE Deep Vein Thrombosis/Pulmonary Embolism Present on Admission: No
== END 2022-04-06 12:05 | disposition home health service (06) | DRG 66 ==
LOC: ED 06:57 → ICU 06:57 → MEDSUR 04-01 21:36
PROVIDERS: ADMIT Internal Medicine; ATTEND Internal Medicine